=== PATIENT | female | born 1930 | race African-American/Black ===

== ENCOUNTER 2018-06-01 14:25 | Inpatient (IN) | payer MEDICARE, MEDICAID ==
[~2018-06-01] VITALS: Ht 165.1 cm; Wt 59.9 kg
[~2018-06-01 14:25] MED LIST: ACET-2708 PO; ASPI-1159 PO; DEXT15DR5 EACHEYE; LINA145C PO
[2018-06-01] MEDS ORDERED: SODIUM CHLORIDE 0.9% 500 ML IV ONE (14:45)
[2018-06-01] MEDS ORDERED: NALOXONE HCL 0.4 MG/ML 1ML VIAL IV PRN (14:45)
[2018-06-01 15:17] LABS: BASOPHILS % 0.8 % (0.0-2.0); EOSINOPHILS % 2.2 % (0.0-5.0); HEMATOCRIT. 35.4 % (36.0-48.0); LYMPHOCYTES % 38.6 % (20.0-50.0); MEAN CORPUSCULAR HEMOGLOBIN 33.3 pg (28.0-32.0); MEAN CORPUSCULAR VOLUME 98.5 fL (81.0-99.0); MEAN PLATELET VOLUME 9.3 fl (7.4-10.4); MONOCYTES % 8.5 % (2.0-8.0); NEUTROPHILS % 49.9 % (40.0-76.0); PLATELET 200 x1000/uL (130-400)
[2018-06-01 15:27] LABS: CHLORIDE 110 mEq/L (98-107); ETHANOL BLOOD < 10 mg/dL
[2018-06-01 16:07] LABS: CLARITY URINE CLEAR (CLEAR); COLOR URINE YELLOW (YELLOW); KETONES URINE NEGATIVE (NEGATIVE); LEUKOCYTE ESTERASE URINE NEGATIVE (NEGATIVE); NITRITE URINE NEGATIVE (NEGATIVE); OCCULT BLOOD URINE NEGATIVE (NEGATIVE); PH URINE 7.5 (4.5-8.0); PROTEIN URINE NEGATIVE (NEGATIVE); SPECIFIC GRAVITY URINE 1.004 (1.005-1.030); UROBILINOGEN URINE 0.2 E.U./dL (0.2-1.0)
[2018-06-01] MEDS ORDERED: ASPIRIN 300MG SUPP PR ONE (17:00)
[2018-06-01 17:07] LABS: *AMPHETAMINES SCREEN URINE NEGATIVE (NEGATIVE); *BARBITURATES SCREEN URINE NEGATIVE (NEGATIVE); *BENZODIAZEPINES SCREEN URINE NEGATIVE (NEGATIVE); *COCAINE SCREEN URINE NEGATIVE (NEGATIVE)
[2018-06-01 17:08] LABS: CANNABINOID URINE SCREEN NEGATIVE (NEGATIVE); METHADONE URINE SCREEN NEGATIVE (NEGATIVE); OPIATES URINE SCREEN NEGATIVE (NEGATIVE); PHENCYCLIDINE URINE SCREEN NEGATIVE (NEGATIVE)
[2018-06-01] MEDS ORDERED: ACETAMINOPHEN 325MG TABLET PO PRN (20:15)
[2018-06-01] MEDS ORDERED: IPRATROPIUM/ALBUTEROL 0.5-3(2.5)MG/3ML NEB INH PRN (20:15)
[2018-06-01] MEDS ORDERED: ONDANSETRON HCL 4MG/2ML INJ IV PRN (20:15)
[2018-06-01 23:20] VITALS: BP 147/81
[2018-06-01 23:45] VITALS: BP 147/81
[2018-06-02] MEDS ORDERED: AMLO5TAB4 PO (02:54)
[2018-06-02] MEDS ORDERED: FAMO20TA8 PO (02:54)
[2018-06-02] MEDS ORDERED: METO25TA6 PO (02:54)
[2018-06-02] MEDS ORDERED: CLOP75TA16 PO (02:54)
[2018-06-02] MEDS ORDERED: ATOR20TA65 PO (02:55)
[2018-06-02 04:00] VITALS: BP 136/66
[2018-06-02 08:00] VITALS: BP 133/65
[2018-06-02 08:42] LABS: BASOPHILS % 0.6 % (0.0-2.0); EOSINOPHILS % 0.3 % (0.0-5.0); HEMOGLOBIN. 11.3 g/dL (12.0-16.0); LYMPHOCYTES % 21.7 % (20.0-50.0); MEAN CORPUSCULAR HEMOGLOBIN 33.6 pg (28.0-32.0); MEAN CORPUSCULAR VOLUME 98.1 fL (81.0-99.0); MEAN PLATELET VOLUME 8.7 fl (7.4-10.4); MONOCYTES % 6.3 % (2.0-8.0); NEUTROPHILS % 71.1 % (40.0-76.0); PLATELET 188 x1000/uL (130-400); RED BLOOD CELL COUNT 3.37 mill/uL (4.2-5.4); RED CELL DISTRIBUTION WIDTH 12.9 % (11.6-14.6)
[2018-06-02] MEDS ORDERED: DOCUSATE SODIUM 250MG CAPSULE PO SCH (09:00)
[2018-06-02 09:24] LABS: CHLORIDE 114 mEq/L (98-107)
[2018-06-02 09:30] LABS: HDL CHOLESTEROL 64 mg/dL (40-59); LDL CHOLESTEROL 98 mg/dL (5-100)
[2018-06-02] MEDS ORDERED: ACETAMINOPHEN 650MG/20.3ML UDC PO NR (09:30)
[2018-06-02] MEDS: ASPIRIN 81MG EC TABLET PO SCH (09:41)
[2018-06-02] MEDS: ENOXAPARIN 40MG/0.4ML SYR SUBCUT SCH (09:41)
[2018-06-02] MEDS ORDERED: BACLOFEN 10MG TABLET PO SCH (09:45)
[2018-06-02] MEDS: DOCUSATE SODIUM SUGAR FREE 100MG/10ML UDC PO SCH (09:49)
[2018-06-02] MEDS: POLYVINYL ALCOHOL OPHTH DROPS 15ML BOTHEYE SCH ×2 (15:14→22:24)
[2018-06-02 16:00] VITALS: BP 152/83
[2018-06-02] MEDS: DEXT 5%/0.45% NACL 1000ML 1,000 ML IV SCH ×2 (16:56→22:24)
[2018-06-02 20:00] VITALS: BP 132/78
[2018-06-03] VITALS (7 sets, daily range): BP systolic 113–161; BP diastolic 60–76
[2018-06-03] MEDS: POLYVINYL ALCOHOL OPHTH DROPS 15ML BOTHEYE SCH ×4 (06:25→18:13)
[2018-06-03 07:50] LABS: BASOPHILS % 0.9 % (0.0-2.0); EOSINOPHILS % 1.6 % (0.0-5.0); HEMATOCRIT. 31.8 % (36.0-48.0); HEMOGLOBIN. 10.9 g/dL (12.0-16.0); LYMPHOCYTES % 29.3 % (20.0-50.0); MEAN CORPUSCULAR HEMOGLOBIN 33.6 pg (28.0-32.0); MEAN CORPUSCULAR VOLUME 97.9 fL (81.0-99.0); MEAN PLATELET VOLUME 8.7 fl (7.4-10.4); MONOCYTES % 11.4 % (2.0-8.0); NEUTROPHILS % 56.8 % (40.0-76.0); PLATELET 201 x1000/uL (130-400); RED BLOOD CELL COUNT 3.25 mill/uL (4.2-5.4); RED CELL DISTRIBUTION WIDTH 12.9 % (11.6-14.6)
[2018-06-03 08:49] LABS: CHLORIDE 111 mEq/L (98-107)
[2018-06-03] MEDS: ASPIRIN 81MG EC TABLET PO SCH (08:50)
[2018-06-03] MEDS: DOCUSATE SODIUM SUGAR FREE 100MG/10ML UDC PO SCH (08:51)
[2018-06-03] MEDS: ENOXAPARIN 40MG/0.4ML SYR SUBCUT SCH (08:51)
[2018-06-03] MEDS: DEXT 5%/0.45% NACL 1000ML 1,000 ML IV SCH (12:54)
[2018-06-03] MEDS ORDERED: AMLODIPINE 2.5MG TABLET PO SCH (13:45)
[2018-06-03] MEDS: CLOPIDOGREL 75MG TABLET PO SCH (14:21)
[2018-06-03] MEDS: ATORVASTATIN CALCIUM 10MG TABLET PO SCH (21:56)
[2018-06-04] VITALS: BP 107/56
[2018-06-04] MEDS: POLYVINYL ALCOHOL OPHTH DROPS 15ML BOTHEYE SCH ×4 (00:09→17:37)
[2018-06-04] MEDS: DEXT 5%/0.45% NACL 1000ML 1,000 ML IV SCH (03:56)
[2018-06-04 04:00] VITALS: BP 146/73
[2018-06-04 06:34] LABS: BASOPHILS % 0.6 % (0.0-2.0); EOSINOPHILS % 3.8 % (0.0-5.0); HEMATOCRIT. 30.4 % (36.0-48.0); HEMOGLOBIN. 10.2 g/dL (12.0-16.0); LYMPHOCYTES % 29.7 % (20.0-50.0); MEAN CORPUSCULAR HEMOGLOBIN 33.3 pg (28.0-32.0); MEAN CORPUSCULAR VOLUME 99.6 fL (81.0-99.0); MONOCYTES % 10.5 % (2.0-8.0); NEUTROPHILS % 55.4 % (40.0-76.0); PLATELET 167 x1000/uL (130-400); RED BLOOD CELL COUNT 3.05 mill/uL (4.2-5.4); RED CELL DISTRIBUTION WIDTH 12.7 % (11.6-14.6)
[2018-06-04 08:00] VITALS: BP 164/82
[2018-06-04 08:11] LABS: CHLORIDE 111 mEq/L (98-107)
[2018-06-04] MEDS: CLOPIDOGREL 75MG TABLET PO SCH (08:55)
[2018-06-04] MEDS: ASPIRIN 81MG EC TABLET PO SCH (08:55)
[2018-06-04] MEDS: AMLODIPINE 2.5MG TABLET PO SCH (08:56)
[2018-06-04] MEDS: DOCUSATE SODIUM SUGAR FREE 100MG/10ML UDC PO SCH (08:56)
[2018-06-04 12:00] VITALS: BP 140/87
[2018-06-04 16:00] VITALS: BP 141/64
[2018-06-04 20:00] VITALS: BP 92/56
[2018-06-04] MEDS: ATORVASTATIN CALCIUM 10MG TABLET PO SCH (21:57)
[2018-06-04] MEDS: BACLOFEN 10MG TABLET PO SCH (21:58)
[2018-06-05] VITALS: BP 117/56
[2018-06-05] MEDS: POLYVINYL ALCOHOL OPHTH DROPS 15ML BOTHEYE SCH ×5 (00:55→23:17)
[2018-06-05 04:00] VITALS: BP 117/55
[2018-06-05 06:48] LABS: BASOPHILS % 0.4 % (0.0-2.0); EOSINOPHILS % 2.6 % (0.0-5.0); HEMATOCRIT. 30.4 % (36.0-48.0); HEMOGLOBIN. 10.4 g/dL (12.0-16.0); LYMPHOCYTES % 32.8 % (20.0-50.0); MEAN CORPUSCULAR HEMOGLOBIN 33.5 pg (28.0-32.0); MEAN CORPUSCULAR VOLUME 98.1 fL (81.0-99.0); MONOCYTES % 8.7 % (2.0-8.0); NEUTROPHILS % 55.5 % (40.0-76.0); PLATELET 191 x1000/uL (130-400); RED CELL DISTRIBUTION WIDTH 12.9 % (11.6-14.6)
[2018-06-05 07:23] LABS: CHLORIDE 109 mEq/L (98-107)
[2018-06-05 08:14] VITALS: BP 129/62
[2018-06-05] MEDS: ASPIRIN 81MG EC TABLET PO SCH (08:42)
[2018-06-05] MEDS: DOCUSATE SODIUM SUGAR FREE 100MG/10ML UDC PO SCH (08:42)
[2018-06-05] MEDS: CLOPIDOGREL 75MG TABLET PO SCH (08:42)
[2018-06-05] MEDS: AMLODIPINE 2.5MG TABLET PO SCH (08:42)
[2018-06-05] MEDS: FUROSEMIDE 20MG/2ML VIAL IVP SCH (10:55)
[2018-06-05] MEDS: PANTOPRAZOLE SODIUM 40 MG/VIAL IV SCH (10:55)
[2018-06-05] MEDS: SODIUM CHLORIDE 0.9% 1,000 ML IV SCH (10:55)
[2018-06-05 11:08] LABS: PHOSPHORUS 1.8 mg/dL (2.5-4.9)
[2018-06-05 12:00] VITALS: BP 131/67
[2018-06-05 13:36] LABS: T4 FREE 1.49 ng/dL (0.76-1.46)
[2018-06-05 14:11] LABS: FOLIC ACID (FOLATE) SERUM 17.3 ng/mL (>5.38)
[2018-06-05 16:00] VITALS: BP 125/62
[2018-06-05] MEDS ORDERED: ACETAMINOPHEN 325MG SUPP PR PRN (18:30)
[2018-06-05 20:00] VITALS: BP 94/73
[2018-06-05] MEDS: BACLOFEN 10MG TABLET PO SCH (20:42)
[2018-06-05] MEDS: ATORVASTATIN CALCIUM 10MG TABLET PO SCH (20:42)
[2018-06-05] MEDS ORDERED: ACETAMINOPHEN 325MG SUPP PR SCH (21:00)
[2018-06-06] VITALS: BP 157/65
[2018-06-06] MEDS: SODIUM CHLORIDE 0.9% 1,000 ML IV SCH (03:53)
[2018-06-06 04:00] VITALS: BP 141/69
[2018-06-06] MEDS: POLYVINYL ALCOHOL OPHTH DROPS 15ML BOTHEYE SCH ×4 (06:47→23:49)
[2018-06-06 08:00] VITALS: BP 157/89
[2018-06-06 08:13] LABS: BASOPHILS % 0.8 % (0.0-2.0); EOSINOPHILS % 2.5 % (0.0-5.0); HEMOGLOBIN. 10.4 g/dL (12.0-16.0); LYMPHOCYTES % 27.7 % (20.0-50.0); MEAN CORPUSCULAR HEMOGLOBIN 32.6 pg (28.0-32.0); MEAN CORPUSCULAR VOLUME 97.9 fL (81.0-99.0); MEAN PLATELET VOLUME 8.9 fl (7.4-10.4); MONOCYTES % 8.4 % (2.0-8.0); NEUTROPHILS % 60.6 % (40.0-76.0); PLATELET 204 x1000/uL (130-400); RED BLOOD CELL COUNT 3.17 mill/uL (4.2-5.4); RED CELL DISTRIBUTION WIDTH 12.7 % (11.6-14.6)
[2018-06-06 08:18] LABS: CHLORIDE 114 mEq/L (98-107)
[2018-06-06] MEDS: ASPIRIN 81MG EC TABLET PO SCH (09:00)
[2018-06-06] MEDS: AMLODIPINE 2.5MG TABLET PO SCH (09:00)
[2018-06-06] MEDS: DOCUSATE SODIUM SUGAR FREE 100MG/10ML UDC PO SCH (09:00)
[2018-06-06] MEDS: CLOPIDOGREL 75MG TABLET PO SCH (09:00)
[2018-06-06] MEDS: FUROSEMIDE 20MG/2ML VIAL IVP SCH (10:43)
[2018-06-06] MEDS: PANTOPRAZOLE SODIUM 40 MG/VIAL IV SCH (10:43)
[2018-06-06] MEDS ORDERED: ACETAMINOPHEN 650MG SUPP PR PRN (10:45)
[2018-06-06 12:00] VITALS: BP 131/78
[2018-06-06] MEDS: ACETAMINOPHEN 650MG SUPP PR SCH ×2 (12:59→21:27)
[2018-06-06] MEDS: DEXT 5%/0.45% NACL 1000ML 1,000 ML IV SCH (13:00)
[2018-06-06 16:00] VITALS: BP 139/98
[2018-06-06 20:00] VITALS: BP 134/74
[2018-06-06] MEDS: BACLOFEN 10MG TABLET PO SCH (21:00)
[2018-06-06] MEDS: ATORVASTATIN CALCIUM 10MG TABLET PO SCH (21:00)
[2018-06-07] VITALS (7 sets, daily range): BP systolic 108–163; BP diastolic 52–87
[2018-06-07] MEDS: POLYVINYL ALCOHOL OPHTH DROPS 15ML BOTHEYE SCH ×3 (05:56→20:00)
[2018-06-07] MEDS: DEXT 5%/0.45% NACL 1000ML 1,000 ML IV SCH (05:56)
[2018-06-07 08:07] LABS: BASOPHILS % 0.8 % (0.0-2.0); EOSINOPHILS % 3.6 % (0.0-5.0); HEMATOCRIT. 32.2 % (36.0-48.0); HEMOGLOBIN. 10.8 g/dL (12.0-16.0); LYMPHOCYTES % 24.3 % (20.0-50.0); MEAN CORPUSCULAR HEMOGLOBIN 32.7 pg (28.0-32.0); MEAN CORPUSCULAR VOLUME 97.9 fL (81.0-99.0); MEAN PLATELET VOLUME 8.8 fl (7.4-10.4); MONOCYTES % 10.4 % (2.0-8.0); NEUTROPHILS % 60.9 % (40.0-76.0); PLATELET 209 x1000/uL (130-400); RED BLOOD CELL COUNT 3.29 mill/uL (4.2-5.4)
[2018-06-07] MEDS: PANTOPRAZOLE SODIUM 40 MG/VIAL IV SCH (09:47)
[2018-06-07] MEDS: FUROSEMIDE 20MG/2ML VIAL IVP SCH (10:05)
[2018-06-07] MEDS: ASPIRIN 81MG EC TABLET PO SCH (10:10)
[2018-06-07] MEDS: CLOPIDOGREL 75MG TABLET PO SCH (10:10)
[2018-06-07] MEDS: AMLODIPINE 2.5MG TABLET PO SCH (10:10)
[2018-06-07 10:12] LABS: CHLORIDE 112 mEq/L (98-107)
[2018-06-07 10:21] LABS: PHOSPHORUS 2.5 mg/dL (2.5-4.9)
[2018-06-07] MEDS: ACETAMINOPHEN 650MG SUPP PR SCH ×2 (10:23→21:26)
[2018-06-07] MEDS: DOCUSATE SODIUM SUGAR FREE 100MG/10ML UDC PO SCH (10:27)
[2018-06-07] MEDS: POTASSIUM PHOS M BASIC D BASIC IV SCH ×2 (14:12→19:04)
[2018-06-07] MEDS: DEXTROSE 5% IV SCH ×2 (14:12→19:04)
[2018-06-07] MEDS: WATER IV SCH ×2 (14:12→19:04)
[2018-06-07] MEDS: BACLOFEN 10MG TABLET PO SCH (21:26)
[2018-06-07] MEDS: ATORVASTATIN CALCIUM 10MG TABLET PO SCH (21:26)
[2018-06-08] VITALS: BP 131/71
[2018-06-08] MEDS: DEXTROSE 5% IV SCH (00:57)
[2018-06-08] MEDS: POTASSIUM PHOS M BASIC D BASIC IV SCH (00:57)
[2018-06-08] MEDS: WATER IV SCH (00:57)
[2018-06-08] MEDS: POLYVINYL ALCOHOL OPHTH DROPS 15ML BOTHEYE SCH ×4 (00:57→18:00)
[2018-06-08 04:00] VITALS: BP 116/61
[2018-06-08 06:21] LABS: BASOPHILS % 0.5 % (0.0-2.0); EOSINOPHILS % 3.9 % (0.0-5.0); HEMOGLOBIN. 10.4 g/dL (12.0-16.0); LYMPHOCYTES % 28.7 % (20.0-50.0); MEAN CORPUSCULAR HEMOGLOBIN 32.8 pg (28.0-32.0); MEAN CORPUSCULAR VOLUME 97.8 fL (81.0-99.0); MEAN PLATELET VOLUME 9.3 fl (7.4-10.4); MONOCYTES % 9.1 % (2.0-8.0); NEUTROPHILS % 57.8 % (40.0-76.0); PLATELET 193 x1000/uL (130-400); RED BLOOD CELL COUNT 3.17 mill/uL (4.2-5.4); RED CELL DISTRIBUTION WIDTH 12.6 % (11.6-14.6)
[2018-06-08 06:22] LABS: PHOSPHORUS 4.8 mg/dL (2.5-4.9)
[2018-06-08] MEDS ORDERED: FOLIC ACID 1MG TABLET PO SCH (09:00)
[2018-06-08] MEDS: FUROSEMIDE 20MG/2ML VIAL IVP SCH (10:42)
[2018-06-08] MEDS: DOCUSATE SODIUM SUGAR FREE 100MG/10ML UDC PO SCH (10:42)
[2018-06-08] MEDS: ACETAMINOPHEN 650MG SUPP PR SCH (10:43)
[2018-06-08] MEDS: AMLODIPINE 2.5MG TABLET PO SCH (10:44)
[2018-06-08] MEDS: PANTOPRAZOLE SODIUM 40 MG/VIAL IV SCH (10:44)
[2018-06-08] MEDS: DEXT 5%/0.45% NACL 1000ML 1,000 ML IV SCH ×2 (10:53→18:30)
[2018-06-08 16:00] VITALS: BP 127/78
[2018-06-08] MEDS ORDERED: DIPYRIDAMOLE 25 MG TABLET PO SCH (18:00)
[2018-06-08] MEDS ORDERED: ASPIRIN 81MG TABLET PO SCH (18:00)
[2018-06-08 18:14] LABS: PARTIAL THROMBOPLASTIN TIME 25.1 sec (23.4-31.0); PROTHROMBIN TIME 9.9 sec (9.1-11.1)
[2018-06-08 20:01] VITALS: BP 118/58
[2018-06-09] MEDS ORDERED: FAMOTIDINE 20MG/2ML VIAL IV SCH (09:00)
[2018-06-10 07:20] LABS: A/G RATIO 0.9 (0.7-1.7); ALBUMIN 3.2 g/dL (2.9-4.4); ALPHA-1-GLOBULIN 0.3 g/dL (0.0-0.4); ALPHA-2-GLOBULIN 0.8 g/dL (0.4-1.0); BETA GLOBULIN 1.5 g/dL (0.7-1.3); GAMMA GLOBULINS 0.8 g/dL (0.4-1.8); GLOBULIN TOTAL 3.4 g/dL (2.2-3.9); M-SPIKE 0.7 g/dL (Not Observed); TOTAL PROTEIN SERUM 6.6 g/dL (6.0-8.5)
== END 2018-06-08 22:31 | DRG 65 ==
LOC: ER 14:25 → EDBEDREQTM 17:09 → EDBEDREQ 17:09 → EDBEDREQTM 18:20 → EDBEDREQ 18:21 → EDBEDREQTM 18:30 → EDBEDREQ 18:30 → 5WST 18:30 → ENRESERV 19:30
PROVIDERS: ADMIT Internal Medicine Geriatric Medicine; ATTEND Internal Medicine Geriatric Medicine
DX: I63.9 Cerebral infarction, unspecified (principal); E46 Unspecified protein-calorie malnutrition; E87.0 Hyperosmolality and hypernatremia; G81.91 Hemiplegia, unspecified affecting right dominant side; E87.5 Hyperkalemia; Z86.73 Personal history of transient ischemic attack (TIA), and cerebral infarction without residual deficits; R47.02 Dysphasia; M21.331 Wrist drop, right wrist; I67.1 Cerebral aneurysm, nonruptured; D64.9 Anemia, unspecified; F01.50 Vascular dementia, unspecified severity, without behavioral disturbance, psychotic disturbance, mood disturbance, and anxiety; R25.2 Cramp and spasm; R73.9 Hyperglycemia, unspecified; E86.0 Dehydration; E83.52 Hypercalcemia; K59.09 Other constipation; E78.5 Hyperlipidemia, unspecified; M13.0 Polyarthritis, unspecified; E78.00 Pure hypercholesterolemia, unspecified; I10 Essential (primary) hypertension; I65.23 Occlusion and stenosis of bilateral carotid arteries; M48.02 Spinal stenosis, cervical region; R13.10 Dysphagia, unspecified; Z91.041 Radiographic dye allergy status; Z99.3 Dependence on wheelchair; Z68.22 Body mass index [BMI] 22.0-22.9, adult; Z88.8 Allergy status to other drugs, medicaments and biological substances; Z79.82 Long term (current) use of aspirin
CPT/HCPCS: 36415; 70544; 70551; 71045; 72141; 73030; 73060; 80048; 80061; 80305; 80307; 80329; 82140; 82330; 82607; 82746; 82962; 83036; 83735; 83880; 83970; 84100; 84134; 84155; 84165; 84439; 84443; 84481; 84484; 92610; 93005; 93306; 93880; 93970; 96361; 96374; 97162; 97530; 99285; C1893; C9113; G0482; J1650; J1940; J2310; J3490; J7030; J7070

== ENCOUNTER 2018-06-25 09:58 | Day surgery (SDC) | payer MEDICARE, MEDICAID ==
[~2018-06-25] VITALS: Ht 157.5 cm; Wt 53.1 kg
[~2018-06-25 09:58] MED LIST changes: +AMLO5TAB4 PO; +ATOR20TA65 PO; +CLOP75TA16 PO; +FAMO20TA8 PO; +METO25TA6 PO
[2018-06-25] MEDS ORDERED: LACTATED RINGERS 1,000 ML IV SCH (10:15)
[2018-06-25] MEDS ORDERED: MULT9LIQ7 PO (11:20)
[2018-06-25] MEDS ORDERED: FOLI-43 PO (11:20)
[2018-06-25] MEDS ORDERED: LOV40 SQ (11:20)
[2018-06-25] MEDS ORDERED: PANT40TA4 PO (11:20)
[2018-06-25] MEDS ORDERED: PROPOFOL 200MG/20ML VIAL IV ONE (11:26)
[2018-06-25] MEDS ORDERED: LIDOCAINE HCL/PF 1% 10 MG/ML 5ML VIAL ONE (11:35)
[2018-06-25] MEDS ORDERED: AMIN30LI2 PO (12:18)
[2018-06-25] MEDS ORDERED: ACET120S38 RC (12:18)
[2018-06-25] MEDS ORDERED: DOCU50LI13 PO (12:18)
== END 2018-06-25 13:00 | disposition home or self-care (01) ==
LOC: OR 09:58
PROVIDERS: ATTEND Internal Medicine Gastroenterology
DX: E46 Unspecified protein-calorie malnutrition (principal); R19.7 Diarrhea, unspecified; K44.9 Diaphragmatic hernia without obstruction or gangrene; I10 Essential (primary) hypertension; E78.5 Hyperlipidemia, unspecified; D64.9 Anemia, unspecified; G81.91 Hemiplegia, unspecified affecting right dominant side; Z79.899 Other long term (current) drug therapy; Z98.890 Other specified postprocedural states; Z88.8 Allergy status to other drugs, medicaments and biological substances; Z86.73 Personal history of transient ischemic attack (TIA), and cerebral infarction without residual deficits
CPT/HCPCS: 43246; J3490; C1893; J2704

== ENCOUNTER 2019-08-16 12:36 | Inpatient (IN) | payer MEDICAID, MEDICARE ==
[~2019-08-16] VITALS: Ht 154.9 cm; Wt 60.3 kg
[~2019-08-16 12:36] MED LIST changes: +ACET120S38 RC; +AMIN30LI2 PO; -ASPI-1159 PO; -CLOP75TA16 PO; +CLOP75TA4 PO; +DOCU50LI13 PO; -FAMO20TA8 PO; +FOLI-43 PO; -LINA145C PO; +LOV40 SQ; -METO25TA6 PO; +MULT9LIQ7 PO; +PANT40TA4 PO
[2019-08-16 14:42] LABS: BASOPHILS % 0.4 % (0.0-2.0); EOSINOPHILS % 0.2 % (0.0-5.0); HEMATOCRIT. 32.5 % (36.0-48.0); MEAN CORPUSCULAR HEMOGLOBIN 33.7 pg (28.0-32.0); MEAN CORPUSCULAR VOLUME 99.8 fL (81.0-99.0); MEAN PLATELET VOLUME 8.6 fl (7.4-10.4); MONOCYTES % 8.8 % (2.0-8.0); NEUTROPHILS % 78.6 % (40.0-76.0); PLATELET 227 x1000/uL (130-400); RED BLOOD CELL COUNT 3.26 mill/uL (4.2-5.4); RED CELL DISTRIBUTION WIDTH 13.3 % (11.6-14.6)
[2019-08-16 14:49] LABS: INR 1.1; PROTHROMBIN TIME 10.8 sec (9.6-11.0)
[2019-08-16 14:54] LABS: CHLORIDE 114 mEq/L (98-107)
[2019-08-16 14:58] LABS: ETHANOL BLOOD < 10 mg/dL
[2019-08-16 15:01] LABS: LDL CHOLESTEROL 83 mg/dL (5-100)
[2019-08-16] MEDS ORDERED: MAGNESIUM/ALUMINUM HYDROXIDE/SIMETHICONE 30ML UDC PO PRN (15:30)
[2019-08-16] MEDS ORDERED: IPRATROPIUM/ALBUTEROL 0.5-3(2.5)MG/3ML NEB HHN PRN (15:30)
[2019-08-16] MEDS ORDERED: ONDANSETRON HCL 4MG/2ML INJ IV PRN (15:30)
[2019-08-16] MEDS ORDERED: ACETAMINOPHEN 650MG/20.3ML UDC GT PRN (15:30)
[2019-08-16] MEDS: SODIUM CHL 0.45% + KCL 20MEQ/L 1,000 ML IV SCH (18:05)
[2019-08-16 19:01] LABS: CLARITY URINE CLEAR (CLEAR); COLOR URINE YELLOW (YELLOW); KETONES URINE NEGATIVE (NEGATIVE); LEUKOCYTE ESTERASE URINE NEGATIVE (NEGATIVE); NITRITE URINE POSITIVE (NEGATIVE); OCCULT BLOOD URINE NEGATIVE (NEGATIVE); PROTEIN URINE 1+ (NEGATIVE); SPECIFIC GRAVITY URINE 1.013 (1.005-1.030)
[2019-08-16 19:24] LABS: *AMPHETAMINES SCREEN URINE NEGATIVE (NEGATIVE); *BARBITURATES SCREEN URINE NEGATIVE (NEGATIVE); *BENZODIAZEPINES SCREEN URINE NEGATIVE (NEGATIVE); CANNABINOID URINE SCREEN NEGATIVE (NEGATIVE); PHENCYCLIDINE URINE SCREEN NEGATIVE (NEGATIVE)
[2019-08-16 19:25] LABS: *COCAINE SCREEN URINE NEGATIVE (NEGATIVE); METHADONE URINE SCREEN NEGATIVE (NEGATIVE); OPIATES URINE SCREEN NEGATIVE (NEGATIVE)
[2019-08-16] MEDS ORDERED: CEFTRIAXONE 1 G PREMIX 50 ML IV SCH (20:30)
[2019-08-17] VITALS (8 sets, daily range): BP systolic 121–191; BP diastolic 53–82
[2019-08-17] MEDS: POLYVINYL ALCOHOL OPHTH DROPS 15ML BOTHEYE SCH ×3 (06:30→21:42)
[2019-08-17] MEDS: SODIUM CHL 0.45% + KCL 20MEQ/L 1,000 ML IV SCH ×2 (06:30→21:09)
[2019-08-17 08:32] LABS: BASOPHILS % 0.6 % (0.0-2.0); EOSINOPHILS % 0.3 % (0.0-5.0); HEMATOCRIT. 30.9 % (36.0-48.0); HEMOGLOBIN. 10.4 g/dL (12.0-16.0); LYMPHOCYTES % 29.3 % (20.0-50.0); MEAN CORPUSCULAR HEMOGLOBIN 33.7 pg (28.0-32.0); MEAN CORPUSCULAR VOLUME 100.2 fL (81.0-99.0); MEAN PLATELET VOLUME 8.4 fl (7.4-10.4); MONOCYTES % 13.6 % (2.0-8.0); NEUTROPHILS % 56.2 % (40.0-76.0); PLATELET 206 x1000/uL (130-400); RED BLOOD CELL COUNT 3.08 mill/uL (4.2-5.4); RED CELL DISTRIBUTION WIDTH 13.2 % (11.6-14.6)
[2019-08-17] MEDS ORDERED: ACETAMINOPHEN 120MG SUPP RC SCH (09:00)
[2019-08-17] MEDS ORDERED: DOCUSATE SODIUM 250MG CAPSULE PO SCH (09:00)
[2019-08-17 09:14] LABS: CHLORIDE 116 mEq/L (98-107)
[2019-08-17 09:27] LABS: T4 FREE 1.15 ng/dL (0.76-1.46)
[2019-08-17] MEDS: PANTOPRAZOLE 40MG DR TABLET PO SCH (09:41)
[2019-08-17] MEDS: MULTIVITAMINS,THER W-MINERALS TABLET GT SCH (09:41)
[2019-08-17] MEDS: FOLIC ACID 1MG TABLET PO SCH (09:41)
[2019-08-17] MEDS: DOCUSATE SODIUM SUGAR FREE 100MG/10ML UDC PO SCH (09:41)
[2019-08-17] MEDS: AMLODIPINE 2.5MG TABLET GT SCH (09:42)
[2019-08-17] MEDS: ACETAMINOPHEN 500MG TABLET PO SCH ×2 (09:42→17:18)
[2019-08-17] MEDS: APIXABAN 2.5 MG TABLET PO SCH ×2 (12:25→17:18)
[2019-08-17] MEDS: IPRATROPIUM/ALBUTEROL 0.5-3(2.5)MG/3ML NEB HHN SCH ×2 (17:12→21:07)
[2019-08-17] MEDS: CEFTRIAXONE 1 G PREMIX 50 ML IV SCH (20:06)
[2019-08-17] MEDS ORDERED: CEFTRIAXONE 1 G PREMIX 50 ML IV SCH (21:00)
[2019-08-17] MEDS ORDERED: ATORVASTATIN CALCIUM 20MG TABLET PO SCH (21:00)
[2019-08-17] MEDS: ATORVASTATIN CALCIUM 20MG TABLET PO SCH (21:10)
[2019-08-18] VITALS (12 sets, daily range): BP systolic 118–169; BP diastolic 48–121
[2019-08-18] MEDS: IPRATROPIUM/ALBUTEROL 0.5-3(2.5)MG/3ML NEB HHN SCH ×6 (00:47→20:27)
[2019-08-18] MEDS: POLYVINYL ALCOHOL OPHTH DROPS 15ML BOTHEYE SCH ×4 (04:41→17:07)
[2019-08-18] MEDS: CLONIDINE 0.1MG TABLET PO PRN (06:50)
[2019-08-18 06:59] LABS: BASOPHILS % 0.3 % (0.0-2.0); EOSINOPHILS % 0.1 % (0.0-5.0); LYMPHOCYTES % 21.7 % (20.0-50.0); MEAN CORPUSCULAR HEMOGLOBIN 33.4 pg (28.0-32.0); MEAN CORPUSCULAR VOLUME 99.9 fL (81.0-99.0); MEAN PLATELET VOLUME 9.1 fl (7.4-10.4); MONOCYTES % 8.8 % (2.0-8.0); NEUTROPHILS % 69.1 % (40.0-76.0); PLATELET 214 x1000/uL (130-400); RED BLOOD CELL COUNT 3.31 mill/uL (4.2-5.4)
[2019-08-18 07:30] LABS: CHLORIDE 112 mEq/L (98-107)
[2019-08-18] MEDS: AMLODIPINE 2.5MG TABLET GT SCH (11:49)
[2019-08-18] MEDS: MULTIVITAMINS,THER W-MINERALS TABLET GT SCH (11:53)
[2019-08-18] MEDS: DOCUSATE SODIUM SUGAR FREE 100MG/10ML UDC PO SCH (11:54)
[2019-08-18] MEDS: PANTOPRAZOLE 40MG DR TABLET PO SCH (11:54)
[2019-08-18] MEDS: FOLIC ACID 1MG TABLET PO SCH (11:54)
[2019-08-18] MEDS: APIXABAN 2.5 MG TABLET PO SCH ×2 (11:54→16:53)
[2019-08-18] MEDS: SODIUM CHL 0.45% + KCL 20MEQ/L 1,000 ML IV SCH ×3 (11:55→15:36)
[2019-08-18] MEDS: ACETAMINOPHEN 500MG TABLET PO SCH ×2 (11:55→16:53)
[2019-08-18] MEDS: CEFTRIAXONE 1 G PREMIX 50 ML IV SCH (17:07)
[2019-08-18] MEDS: ATORVASTATIN CALCIUM 20MG TABLET PO SCH (21:27)
[2019-08-19] VITALS (13 sets, daily range): BP systolic 129–164; BP diastolic 49–98
[2019-08-19] MEDS: IPRATROPIUM/ALBUTEROL 0.5-3(2.5)MG/3ML NEB HHN SCH ×6 (00:25→21:24)
[2019-08-19 06:50] LABS: CHLORIDE 114 mEq/L (98-107)
[2019-08-19] MEDS: POLYVINYL ALCOHOL OPHTH DROPS 15ML BOTHEYE SCH ×4 (06:54→18:37)
[2019-08-19 07:01] LABS: BASOPHILS % 0.5 % (0.0-2.0); EOSINOPHILS % 0.6 % (0.0-5.0); HEMATOCRIT. 31.8 % (36.0-48.0); HEMOGLOBIN. 10.5 g/dL (12.0-16.0); LYMPHOCYTES % 28.3 % (20.0-50.0); MEAN CORPUSCULAR HEMOGLOBIN 33.6 pg (28.0-32.0); MEAN PLATELET VOLUME 8.5 fl (7.4-10.4); MONOCYTES % 10.6 % (2.0-8.0); PLATELET 199 x1000/uL (130-400); RED BLOOD CELL COUNT 3.11 mill/uL (4.2-5.4); RED CELL DISTRIBUTION WIDTH 13.5 % (11.6-14.6)
[2019-08-19] MEDS: DOCUSATE SODIUM SUGAR FREE 100MG/10ML UDC PO SCH (08:55)
[2019-08-19] MEDS: AMLODIPINE 2.5MG TABLET GT SCH (08:56)
[2019-08-19] MEDS: ACETAMINOPHEN 500MG TABLET PO SCH ×2 (08:56→09:56)
[2019-08-19] MEDS: PANTOPRAZOLE 40MG DR TABLET PO SCH (08:56)
[2019-08-19] MEDS: FOLIC ACID 1MG TABLET PO SCH (08:56)
[2019-08-19] MEDS: MULTIVITAMINS,THER W-MINERALS TABLET GT SCH (08:56)
[2019-08-19] MEDS: APIXABAN 2.5 MG TABLET PO SCH ×2 (08:56→18:37)
[2019-08-19] MEDS: SODIUM CHL 0.45% + KCL 20MEQ/L 1,000 ML IV SCH (12:00)
[2019-08-19] MEDS ORDERED: LEVO250T58 MT (12:52)
[2019-08-19] MEDS: CEFTRIAXONE 1 G PREMIX 50 ML IV SCH (18:37)
[2019-08-19] MEDS: ATORVASTATIN CALCIUM 20MG TABLET PO SCH (21:14)
[2019-08-19] MEDS: CLONIDINE 0.1MG TABLET PO PRN (23:23)
[2019-08-20] MEDS ORDERED: FAMOTIDINE 20MG TABLET PO SCH (09:00)
== END 2019-08-19 23:56 | DRG 683 ==
LOC: ER 12:36 → 5EST 15:13 → EDBEDREQ 15:40 → EDBEDREQTM 15:40 → ENRESERV 08-17 00:28
PROVIDERS: ADMIT Internal Medicine Geriatric Medicine; ATTEND Internal Medicine Geriatric Medicine
DX: N17.9 Acute kidney failure, unspecified (principal); N39.0 Urinary tract infection, site not specified; E44.1 Mild protein-calorie malnutrition; I69.351 Hemiplegia and hemiparesis following cerebral infarction affecting right dominant side; J90 Pleural effusion, not elsewhere classified; J20.9 Acute bronchitis, unspecified; E86.0 Dehydration; D63.8 Anemia in other chronic diseases classified elsewhere; G30.9 Alzheimer's disease, unspecified; R62.7 Adult failure to thrive; B96.89 Other specified bacterial agents as the cause of diseases classified elsewhere; E78.5 Hyperlipidemia, unspecified; F02.80 Dementia in other diseases classified elsewhere, unspecified severity, without behavioral disturbance, psychotic disturbance, mood disturbance, and anxiety; K59.09 Other constipation; M19.90 Unspecified osteoarthritis, unspecified site; I11.9 Hypertensive heart disease without heart failure; I48.0 Paroxysmal atrial fibrillation; I73.9 Peripheral vascular disease, unspecified; Z74.01 Bed confinement status; Z79.01 Long term (current) use of anticoagulants; Z79.02 Long term (current) use of antithrombotics/antiplatelets; Z79.899 Other long term (current) drug therapy; Z93.1 Gastrostomy status; Z68.25 Body mass index [BMI] 25.0-25.9, adult
CPT/HCPCS: 36415; 71045; 80048; 80053; 80061; 80305; 80320; 81003; 82962; 83721; 84439; 84443; 84484; 85025; 87077; 87186; 92610; 93005; 93306; 93880; 93970; 94640; 96365; 96366; 99291; J0696; J3480; J7620; G0480

== ENCOUNTER 2019-11-10 12:57 | Inpatient (IN) | payer MEDICARE, MEDICAID ==
[~2019-11-10] VITALS: Ht 162.6 cm; Wt 49.7 kg
[~2019-11-10 12:57] MED LIST changes: -ACET120S38 RC; +LEVO250T58 MT; -LOV40 SQ
[2019-11-10 15:36] LABS: BASOPHILS % 0.4 % (0.0-2.0); HEMATOCRIT. 35.9 % (36.0-48.0); LYMPHOCYTES % 36.9 % (20.0-50.0); MEAN CORPUSCULAR HEMOGLOBIN 33.3 pg (28.0-32.0); MEAN CORPUSCULAR VOLUME 99.6 fL (81.0-99.0); MEAN PLATELET VOLUME 8.9 fl (7.4-10.4); MONOCYTES % 13.3 % (2.0-8.0); NEUTROPHILS % 49.4 % (40.0-76.0); PLATELET 192 x1000/uL (130-400); RED CELL DISTRIBUTION WIDTH 14.5 % (11.6-14.6)
[2019-11-10 15:40] LABS: PROTHROMBIN TIME 10.9 sec (9.6-11.0)
[2019-11-10 15:43] LABS: CLARITY URINE CLEAR (CLEAR); COLOR URINE YELLOW (YELLOW); KETONES URINE NEGATIVE (NEGATIVE); LEUKOCYTE ESTERASE URINE NEGATIVE (NEGATIVE); NITRITE URINE NEGATIVE (NEGATIVE); OCCULT BLOOD URINE NEGATIVE (NEGATIVE); PROTEIN URINE 2+ (NEGATIVE); SPECIFIC GRAVITY URINE 1.014 (1.005-1.030)
[2019-11-10 15:55] LABS: CHLORIDE 116 mEq/L (98-107)
[2019-11-11] MEDS ORDERED: AZITHROMYCIN 500 MG TABLET PO NR (01:00)
[2019-11-11 02:17] VITALS: BP 118/80
[2019-11-11 04:00] VITALS: BP 115/91
[2019-11-11] MEDS ORDERED: ACETAMINOPHEN 325MG TABLET GT PRN (04:30)
[2019-11-11] MEDS ORDERED: CEFTRIAXONE 1 G PREMIX 50 ML IV SCH (08:00)
[2019-11-11 08:02] VITALS: BP 177/84
[2019-11-11] MEDS ORDERED: AZITHROMYCIN 500 MG in DEXT 5% WATER 250 ML IV NR (09:00)
[2019-11-11] MEDS: ACETAMINOPHEN 650MG/20.3ML UDC GT SCH ×2 (09:41→22:03)
[2019-11-11] MEDS: APIXABAN 2.5 MG TABLET GT SCH ×2 (09:41→22:02)
[2019-11-11] MEDS: DOCUSATE SODIUM 250MG CAPSULE PO SCH (09:41)
[2019-11-11] MEDS ORDERED: ASCORBIC ACID 500 MG TABLET GT SCH (10:00)
[2019-11-11] MEDS ORDERED: IPRA4AER INH (10:07)
[2019-11-11 11:08] LABS: BG BASE EXCESS 1.8 mmol/L (-2.0-2.0); BG CARBOXYHEMOGLOBIN 0.3 % (0.5-1.5); BG DEOXYHEMOGLOBIN 4.7 % (0.0-5.0); BG FRACTION INSPIRED OXYGEN 21; BG HCO3 ACT 25.8 mmol/L (22.0-26.0); BG METHEMOGLOBIN 0.1 % (0.0-1.5); BG OXYGEN SATURATION 95.3 % (92.0-98.5); BG OXYHEMOGLOBIN 94.9 % (94.0-97.0); BG PH 7.449 (7.350-7.450); BG PO2 76.3 mmHg (75.0-100.0); BG SAMPLE SITE RIGHT RADIAL; BG TOTAL HEMOGLOBIN 12.7 g/dL (12.0-18.0); BG VENT MODE ROOM AIR
[2019-11-11] MEDS: HYDROXYCHLOROQUINE SULFATE 200MG TABLET PO SCH ×2 (11:37→22:02)
[2019-11-11] MEDS: CHOLECALCIFEROL (D3) 1000 UNIT TABLET GT SCH (11:37)
[2019-11-11] MEDS: ASCORBIC ACID 500 MG TABLET PO SCH ×2 (11:38→17:50)
[2019-11-11] MEDS: THIAMINE HCL 100MG TABLET PO SCH ×2 (11:38→17:50)
[2019-11-11] MEDS: ZINC SULFATE 220 MG ( 50 ) CAPSULE PO SCH (11:38)
[2019-11-11] MEDS: FOLIC ACID 1MG TABLET PO SCH (11:38)
[2019-11-11] MEDS: AMLODIPINE 5MG TABLET PO SCH (11:39)
[2019-11-11] MEDS: ACETAMINOPHEN 500MG TABLET PO SCH ×2 (11:43→17:51)
[2019-11-11] MEDS: DEXT 5%/0.45% NACL KCL 10MEQ/L 1,000 ML IV SCH (11:43)
[2019-11-11 12:11] VITALS: BP 160/90
[2019-11-11 16:10] VITALS: BP 113/50
[2019-11-11 20:00] VITALS: BP 109/86
[2019-11-11] MEDS ORDERED: ATORVASTATIN CALCIUM 10MG TABLET GT SCH (21:00)
[2019-11-11] MEDS: ATORVASTATIN CALCIUM 20MG TABLET PO SCH (22:02)
[2019-11-12] VITALS: BP 110/88
[2019-11-12] MEDS: CEFTRIAXONE 1 G PREMIX 50 ML IV SCH ×2 (01:50→01:51)
[2019-11-12] MEDS: DEXT 5%/0.45% NACL KCL 10MEQ/L 1,000 ML IV SCH ×2 (01:51→14:34)
[2019-11-12 04:00] VITALS: BP 131/61
[2019-11-12 08:30] VITALS: BP 138/63
[2019-11-12] MEDS: DOCUSATE SODIUM SUGAR FREE 100MG/10ML UDC PO SCH (09:00)
[2019-11-12] MEDS: ASCORBIC ACID 500 MG TABLET PO SCH ×2 (09:00→17:00)
[2019-11-12] MEDS: AZITHROMYCIN 250 MG TABLET GT SCH (09:00)
[2019-11-12] MEDS: DOCUSATE SODIUM 250MG CAPSULE PO SCH (09:00)
[2019-11-12] MEDS: THIAMINE HCL 100MG TABLET PO SCH ×2 (09:00→17:00)
[2019-11-12] MEDS: CHOLECALCIFEROL (D3) 1000 UNIT TABLET GT SCH (09:00)
[2019-11-12] MEDS: ACETAMINOPHEN 650MG/20.3ML UDC GT SCH ×2 (09:00→20:59)
[2019-11-12] MEDS: ACETAMINOPHEN 500MG TABLET PO SCH ×2 (09:37→17:00)
[2019-11-12] MEDS: APIXABAN 2.5 MG TABLET GT SCH ×2 (09:37→20:43)
[2019-11-12] MEDS: FOLIC ACID 1MG TABLET PO SCH (09:38)
[2019-11-12] MEDS: ZINC SULFATE 220 MG ( 50 ) CAPSULE PO SCH (09:38)
[2019-11-12] MEDS: AMLODIPINE 5MG TABLET PO SCH (09:38)
[2019-11-12 09:57] LABS: BASOPHILS % 0.2 % (0.0-2.0); EOSINOPHILS % 0.4 % (0.0-5.0); HEMATOCRIT. 35.3 % (36.0-48.0); HEMOGLOBIN. 11.7 g/dL (12.0-16.0); MEAN CORPUSCULAR HEMOGLOBIN 33.2 pg (28.0-32.0); MEAN CORPUSCULAR VOLUME 99.8 fL (81.0-99.0); MONOCYTES % 5.8 % (2.0-8.0); NEUTROPHILS % 81.6 % (40.0-76.0); RED BLOOD CELL COUNT 3.54 mill/uL (4.2-5.4); RED CELL DISTRIBUTION WIDTH 14.5 % (11.6-14.6)
[2019-11-12 10:13] LABS: CHLORIDE 114 mEq/L (98-107)
[2019-11-12 10:19] LABS: PHOSPHORUS 1.6 mg/dL (2.5-4.9)
[2019-11-12] MEDS: POTASSIUM-SODIUM PHOSPHATE POWDER PACKET GT SCH ×2 (11:09→17:00)
[2019-11-12] MEDS: HYDROXYCHLOROQUINE SULFATE 200MG TABLET PO SCH ×2 (11:09→23:29)
[2019-11-12 12:00] VITALS: BP 110/88
[2019-11-12] MEDS ORDERED: NON FORMULARY PATIENT HOME MED XX SCH (12:00)
[2019-11-12] MEDS ORDERED: IPRATROPIUM/ALBUTEROL 0.5-3(2.5)MG/3ML NEB HHN SCH (12:00)
[2019-11-12] MEDS ORDERED: SODIUM PHOS,M-BASIC-D-BASIC 20 MM in DEXT 5% WATER 243.3333 ML IV SCH (13:00)
[2019-11-12 16:00] VITALS: BP 121/72
[2019-11-12 20:00] VITALS: BP 150/79
[2019-11-12] MEDS: ATORVASTATIN CALCIUM 20MG TABLET PO SCH (20:43)
[2019-11-13] VITALS: BP 103/48
[2019-11-13] MEDS: CEFTRIAXONE 1 G PREMIX 50 ML IV SCH ×2 (01:14→23:39)
[2019-11-13 04:00] VITALS: BP 144/63
[2019-11-13] MEDS: DEXT 5%/0.45% NACL KCL 10MEQ/L 1,000 ML IV SCH ×2 (04:09→17:16)
[2019-11-13] MEDS: ACETAMINOPHEN 650MG/20.3ML UDC GT SCH ×2 (09:00→21:09)
[2019-11-13] MEDS: DOCUSATE SODIUM SUGAR FREE 100MG/10ML UDC PO SCH (09:00)
[2019-11-13] MEDS: ZINC SULFATE 220 MG ( 50 ) CAPSULE PO SCH (09:43)
[2019-11-13] MEDS: APIXABAN 2.5 MG TABLET GT SCH ×2 (09:43→21:09)
[2019-11-13] MEDS: POTASSIUM-SODIUM PHOSPHATE POWDER PACKET GT SCH ×2 (09:44→16:04)
[2019-11-13] MEDS: DOCUSATE SODIUM 250MG CAPSULE PO SCH (09:44)
[2019-11-13] MEDS: AZITHROMYCIN 250 MG TABLET GT SCH (09:44)
[2019-11-13] MEDS: CHOLECALCIFEROL (D3) 1000 UNIT TABLET GT SCH (09:44)
[2019-11-13] MEDS: ACETAMINOPHEN 500MG TABLET PO SCH ×2 (09:44→16:05)
[2019-11-13] MEDS: FOLIC ACID 1MG TABLET PO SCH (09:44)
[2019-11-13] MEDS: AMLODIPINE 5MG TABLET PO SCH (09:45)
[2019-11-13] MEDS: THIAMINE HCL 100MG TABLET PO SCH ×2 (09:45→16:05)
[2019-11-13] MEDS: ASCORBIC ACID 500 MG TABLET PO SCH ×2 (10:49→16:04)
[2019-11-13 10:56] LABS: BASOPHILS % 0.3 % (0.0-2.0); EOSINOPHILS % 0.3 % (0.0-5.0); HEMATOCRIT. 32.5 % (36.0-48.0); HEMOGLOBIN. 10.9 g/dL (12.0-16.0); LYMPHOCYTES % 23.1 % (20.0-50.0); MEAN CORPUSCULAR HEMOGLOBIN 33.4 pg (28.0-32.0); MEAN CORPUSCULAR VOLUME 99.4 fL (81.0-99.0); MEAN PLATELET VOLUME 9.1 fl (7.4-10.4); MONOCYTES % 7.4 % (2.0-8.0); NEUTROPHILS % 68.9 % (40.0-76.0); PLATELET 150 x1000/uL (130-400); RED BLOOD CELL COUNT 3.27 mill/uL (4.2-5.4); RED CELL DISTRIBUTION WIDTH 14.2 % (11.6-14.6)
[2019-11-13 11:00] LABS: CHLORIDE 115 mEq/L (98-107)
[2019-11-13 11:06] LABS: PHOSPHORUS 2.6 mg/dL (2.5-4.9)
[2019-11-13] MEDS: HYDROXYCHLOROQUINE SULFATE 200MG TABLET PO SCH ×2 (11:32→23:39)
[2019-11-13] MEDS: POTASSIUM CHLORIDE 20MEQ/PACKET PO SCH ×2 (13:03→21:09)
[2019-11-13] MEDS: ACETAMINOPHEN 650MG/20.3ML UDC GT PRN (13:33)
[2019-11-13 16:00] VITALS: BP 144/96
[2019-11-13 20:00] VITALS: BP 93/74
[2019-11-13] MEDS: ATORVASTATIN CALCIUM 20MG TABLET PO SCH (21:09)
[2019-11-14] VITALS (7 sets, daily range): BP systolic 98–161; BP diastolic 71–108
[2019-11-14] MEDS: ACETAMINOPHEN 650MG/20.3ML UDC GT PRN ×2 (04:56→13:58)
[2019-11-14] MEDS: ACETAMINOPHEN 500MG TABLET PO SCH ×3 (08:33→22:08)
[2019-11-14] MEDS: DOCUSATE SODIUM 250MG CAPSULE PO SCH (08:34)
[2019-11-14 09:51] LABS: BASOPHILS % 0.4 % (0.0-2.0); EOSINOPHILS % 0.4 % (0.0-5.0); HEMOGLOBIN. 11.4 g/dL (12.0-16.0); LYMPHOCYTES % 21.4 % (20.0-50.0); MEAN CORPUSCULAR HEMOGLOBIN 33.1 pg (28.0-32.0); MEAN CORPUSCULAR VOLUME 98.6 fL (81.0-99.0); MEAN PLATELET VOLUME 10.4 fl (7.4-10.4); MONOCYTES % 7.4 % (2.0-8.0); NEUTROPHILS % 70.4 % (40.0-76.0); PLATELET 148 x1000/uL (130-400); RED BLOOD CELL COUNT 3.45 mill/uL (4.2-5.4); RED CELL DISTRIBUTION WIDTH 14.4 % (11.6-14.6)
[2019-11-14 10:06] LABS: CHLORIDE 114 mEq/L (98-107)
[2019-11-14 10:16] LABS: PHOSPHORUS 2.5 mg/dL (2.5-4.9)
[2019-11-14] MEDS: ASCORBIC ACID 500 MG TABLET PO SCH ×2 (11:00→16:48)
[2019-11-14] MEDS: ZINC SULFATE 220 MG ( 50 ) CAPSULE PO SCH (11:00)
[2019-11-14] MEDS: THIAMINE HCL 100MG TABLET PO SCH ×2 (11:00→16:48)
[2019-11-14] MEDS: AZITHROMYCIN 250 MG TABLET GT SCH (11:00)
[2019-11-14] MEDS: HYDROXYCHLOROQUINE SULFATE 200MG TABLET PO SCH ×2 (11:00→22:07)
[2019-11-14] MEDS: APIXABAN 2.5 MG TABLET GT SCH ×2 (11:01→22:08)
[2019-11-14] MEDS: CHOLECALCIFEROL (D3) 1000 UNIT TABLET GT SCH (11:01)
[2019-11-14] MEDS: FOLIC ACID 1MG TABLET PO SCH (11:01)
[2019-11-14] MEDS: POTASSIUM-SODIUM PHOSPHATE POWDER PACKET GT SCH ×2 (11:01→16:47)
[2019-11-14] MEDS: ACETAMINOPHEN 650MG/20.3ML UDC GT SCH ×2 (11:02→21:00)
[2019-11-14] MEDS: AMLODIPINE 5MG TABLET PO SCH (11:02)
[2019-11-14] MEDS: DOCUSATE SODIUM SUGAR FREE 100MG/10ML UDC PO SCH (13:58)
[2019-11-14] MEDS: DEXT 5%/0.45% NACL KCL 10MEQ/L 1,000 ML IV SCH ×2 (16:48→20:00)
[2019-11-14] MEDS: ATORVASTATIN CALCIUM 20MG TABLET PO SCH (22:07)
[2019-11-15] VITALS: BP 162/88
[2019-11-15] MEDS: CEFTRIAXONE 1 G PREMIX 50 ML IV SCH (01:44)
[2019-11-15 04:00] VITALS: BP 153/76
[2019-11-15] MEDS ORDERED: AMLODIPINE 5MG TABLET PO NR (04:15)
[2019-11-15 08:00] VITALS: BP 137/89
[2019-11-15] MEDS: FOLIC ACID 1MG TABLET PO SCH (09:07)
[2019-11-15] MEDS: DOCUSATE SODIUM SUGAR FREE 100MG/10ML UDC PO SCH (09:07)
[2019-11-15] MEDS: APIXABAN 2.5 MG TABLET GT SCH ×2 (09:07→21:21)
[2019-11-15] MEDS: THIAMINE HCL 100MG TABLET PO SCH ×2 (09:07→16:33)
[2019-11-15] MEDS: ACETAMINOPHEN 650MG/20.3ML UDC GT SCH ×2 (09:07→21:20)
[2019-11-15] MEDS: POTASSIUM-SODIUM PHOSPHATE POWDER PACKET GT SCH ×2 (09:11→16:33)
[2019-11-15] MEDS: ASCORBIC ACID 500 MG TABLET PO SCH ×2 (09:11→16:33)
[2019-11-15] MEDS: CHOLECALCIFEROL (D3) 1000 UNIT TABLET GT SCH (09:11)
[2019-11-15] MEDS: AZITHROMYCIN 250 MG TABLET GT SCH (09:11)
[2019-11-15] MEDS: ZINC SULFATE 220 MG ( 50 ) CAPSULE PO SCH (09:12)
[2019-11-15] MEDS: HYDROXYCHLOROQUINE SULFATE 200MG TABLET PO SCH ×2 (10:22→23:22)
[2019-11-15 12:00] VITALS: BP 154/79
[2019-11-15] MEDS: DEXT 5%/0.45% NACL KCL 10MEQ/L 1,000 ML IV SCH ×2 (14:15→22:40)
[2019-11-15 16:00] VITALS: BP 134/70
[2019-11-15] MEDS: ACETAMINOPHEN 650MG/20.3ML UDC GT PRN (16:33)
[2019-11-15 20:00] VITALS: BP 139/86
[2019-11-15] MEDS: AMLODIPINE 5MG TABLET PO SCH (21:21)
[2019-11-15] MEDS: ATORVASTATIN CALCIUM 20MG TABLET PO SCH (21:21)
[2019-11-16] VITALS: BP 130/85
[2019-11-16] MEDS: CEFTRIAXONE 1 G PREMIX 50 ML IV SCH (00:48)
[2019-11-16] MEDS: DEXT 5%/0.45% NACL KCL 10MEQ/L 1,000 ML IV SCH ×2 (00:48→11:22)
[2019-11-16 04:00] VITALS: BP 153/78
[2019-11-16 05:49] LABS: CHLORIDE 113 mEq/L (98-107)
[2019-11-16 06:08] LABS: BASOPHILS % 0.4 % (0.0-2.0); EOSINOPHILS % 1.1 % (0.0-5.0); HEMATOCRIT. 30.9 % (36.0-48.0); HEMOGLOBIN. 10.6 g/dL (12.0-16.0); LYMPHOCYTES % 28.4 % (20.0-50.0); MEAN CORPUSCULAR HEMOGLOBIN 33.2 pg (28.0-32.0); MEAN CORPUSCULAR VOLUME 96.6 fL (81.0-99.0); MONOCYTES % 6.1 % (2.0-8.0); PLATELET 203 x1000/uL (130-400); RED CELL DISTRIBUTION WIDTH 14.3 % (11.6-14.6)
[2019-11-16 08:00] VITALS: BP 147/69
[2019-11-16] MEDS ORDERED: POTASSIUM CHLORIDE 20MEQ/PACKET PO NR (09:15)
[2019-11-16] MEDS ORDERED: MAGNESIUM 2 G PREMIX 50 ML IV NR (10:00)
[2019-11-16] MEDS: ZINC SULFATE 220 MG ( 50 ) CAPSULE PO SCH (10:48)
[2019-11-16] MEDS: HYDROXYCHLOROQUINE SULFATE 200MG TABLET PO SCH (10:48)
[2019-11-16] MEDS: ACETAMINOPHEN 650MG/20.3ML UDC GT SCH ×2 (10:48→21:59)
[2019-11-16] MEDS: POTASSIUM-SODIUM PHOSPHATE POWDER PACKET GT SCH ×2 (10:49→18:50)
[2019-11-16] MEDS: THIAMINE HCL 100MG TABLET PO SCH ×2 (10:49→18:50)
[2019-11-16] MEDS: CHOLECALCIFEROL (D3) 1000 UNIT TABLET GT SCH (10:49)
[2019-11-16] MEDS: APIXABAN 2.5 MG TABLET GT SCH ×2 (10:49→22:00)
[2019-11-16] MEDS: ASCORBIC ACID 500 MG TABLET PO SCH ×2 (10:55→18:51)
[2019-11-16] MEDS: AMLODIPINE 5MG TABLET PO SCH ×2 (10:56→22:00)
[2019-11-16] MEDS: FOLIC ACID 1MG TABLET PO SCH (10:56)
[2019-11-16] MEDS: DOCUSATE SODIUM SUGAR FREE 100MG/10ML UDC PO SCH (10:57)
[2019-11-16 12:07] VITALS: BP 112/80
[2019-11-16 16:11] VITALS: BP 160/71
[2019-11-16] MEDS ORDERED: POTASSIUM CHLORIDE 20MEQ/PACKET GT SCH (17:00)
[2019-11-16 20:00] VITALS: BP 148/76
[2019-11-16] MEDS: ATORVASTATIN CALCIUM 20MG TABLET PO SCH (22:00)
[2019-11-17] VITALS: BP 160/72
[2019-11-17 04:00] VITALS: BP 142/53
[2019-11-17 07:08] LABS: BASOPHILS % 0.5 % (0.0-2.0); HEMATOCRIT. 29.3 % (36.0-48.0); LYMPHOCYTES % 26.6 % (20.0-50.0); MEAN CORPUSCULAR HEMOGLOBIN 33.2 pg (28.0-32.0); MEAN CORPUSCULAR VOLUME 97.2 fL (81.0-99.0); MEAN PLATELET VOLUME 8.7 fl (7.4-10.4); MONOCYTES % 7.5 % (2.0-8.0); NEUTROPHILS % 64.4 % (40.0-76.0); PLATELET 207 x1000/uL (130-400); RED BLOOD CELL COUNT 3.02 mill/uL (4.2-5.4); RED CELL DISTRIBUTION WIDTH 14.8 % (11.6-14.6)
[2019-11-17 07:46] LABS: CHLORIDE 119 mEq/L (98-107)
[2019-11-17 07:56] LABS: PHOSPHORUS 2.5 mg/dL (2.5-4.9)
[2019-11-17 08:00] VITALS: BP 158/100
[2019-11-17] MEDS: DOCUSATE SODIUM SUGAR FREE 100MG/10ML UDC PO SCH (09:00)
[2019-11-17] MEDS: FOLIC ACID 1MG TABLET PO SCH (09:35)
[2019-11-17] MEDS: ASCORBIC ACID 500 MG TABLET PO SCH (09:35)
[2019-11-17] MEDS: AMLODIPINE 5MG TABLET PO SCH ×2 (09:35→22:52)
[2019-11-17] MEDS: ZINC SULFATE 220 MG ( 50 ) CAPSULE PO SCH (09:35)
[2019-11-17] MEDS: THIAMINE HCL 100MG TABLET PO SCH (09:35)
[2019-11-17] MEDS: CHOLECALCIFEROL (D3) 1000 UNIT TABLET GT SCH (09:35)
[2019-11-17] MEDS: APIXABAN 2.5 MG TABLET GT SCH ×2 (09:35→22:53)
[2019-11-17] MEDS: ACETAMINOPHEN 650MG/20.3ML UDC GT SCH (09:36)
[2019-11-17 12:00] VITALS: BP 111/88
[2019-11-17 16:00] VITALS: BP 112/79
[2019-11-17 20:00] VITALS: BP 132/82
[2019-11-17] MEDS: ATORVASTATIN CALCIUM 20MG TABLET PO SCH (22:53)
[2019-11-18 00:01] VITALS: BP 128/60
[2019-11-18 04:00] VITALS: BP 140/79
[2019-11-18 08:00] VITALS: BP 169/82
[2019-11-18] MEDS: AMLODIPINE 5MG TABLET PO SCH ×2 (08:01→22:21)
[2019-11-18] MEDS: FOLIC ACID 1MG TABLET PO SCH (08:01)
[2019-11-18] MEDS: ACETAMINOPHEN 650MG/20.3ML UDC GT SCH ×2 (08:01→22:22)
[2019-11-18] MEDS: APIXABAN 2.5 MG TABLET GT SCH ×2 (08:01→22:21)
[2019-11-18] MEDS: ZINC SULFATE 220 MG ( 50 ) CAPSULE PO SCH (08:01)
[2019-11-18] MEDS: CHOLECALCIFEROL (D3) 1000 UNIT TABLET GT SCH (08:01)
[2019-11-18] MEDS: DOCUSATE SODIUM SUGAR FREE 100MG/10ML UDC PO SCH (08:05)
[2019-11-18 12:00] VITALS: BP 147/74
[2019-11-18 16:00] VITALS: BP 116/51
[2019-11-18 20:00] VITALS: BP 134/50
[2019-11-18] MEDS: ATORVASTATIN CALCIUM 20MG TABLET PO SCH (22:21)
[2019-11-19] VITALS: BP 141/66
[2019-11-19 04:00] VITALS: BP 142/71
[2019-11-19 08:00] VITALS: BP 126/88
[2019-11-19] MEDS: ACETAMINOPHEN 650MG/20.3ML UDC GT SCH ×2 (08:14→21:19)
[2019-11-19] MEDS: CHOLECALCIFEROL (D3) 1000 UNIT TABLET GT SCH (08:15)
[2019-11-19] MEDS: ZINC SULFATE 220 MG ( 50 ) CAPSULE PO SCH (08:15)
[2019-11-19] MEDS: FOLIC ACID 1MG TABLET PO SCH (08:15)
[2019-11-19] MEDS: APIXABAN 2.5 MG TABLET GT SCH ×2 (08:15→21:19)
[2019-11-19] MEDS: DOCUSATE SODIUM SUGAR FREE 100MG/10ML UDC PO SCH (08:17)
[2019-11-19] MEDS: AMLODIPINE 5MG TABLET PO SCH ×2 (08:55→21:00)
[2019-11-19 12:00] VITALS: BP 110/69
[2019-11-19 13:13] LABS: BASOPHILS % 0.4 % (0.0-2.0); EOSINOPHILS % 2.9 % (0.0-5.0); HEMATOCRIT. 25.6 % (36.0-48.0); HEMOGLOBIN. 8.9 g/dL (12.0-16.0); LYMPHOCYTES % 19.8 % (20.0-50.0); MEAN CORPUSCULAR HEMOGLOBIN 33.5 pg (28.0-32.0); MEAN CORPUSCULAR VOLUME 96.8 fL (81.0-99.0); MEAN PLATELET VOLUME 8.2 fl (7.4-10.4); MONOCYTES % 9.5 % (2.0-8.0); NEUTROPHILS % 67.4 % (40.0-76.0); PLATELET 266 x1000/uL (130-400); RED BLOOD CELL COUNT 2.64 mill/uL (4.2-5.4); RED CELL DISTRIBUTION WIDTH 14.2 % (11.6-14.6)
[2019-11-19 13:18] LABS: CHLORIDE 118 mEq/L (98-107)
[2019-11-19 16:00] VITALS: BP 111/74
[2019-11-19 20:00] VITALS: BP 90/60
[2019-11-19] MEDS: ATORVASTATIN CALCIUM 20MG TABLET PO SCH (21:19)
[2019-11-20] VITALS: BP 110/68
[2019-11-20 04:00] VITALS: BP 126/50
[2019-11-20 08:00] VITALS: BP 110/78
[2019-11-20] MEDS: ACETAMINOPHEN 650MG/20.3ML UDC GT SCH ×2 (10:01→20:51)
[2019-11-20] MEDS: ZINC SULFATE 220 MG ( 50 ) CAPSULE PO SCH (10:02)
[2019-11-20] MEDS: APIXABAN 2.5 MG TABLET GT SCH ×2 (10:02→20:50)
[2019-11-20] MEDS: AMLODIPINE 5MG TABLET PO SCH ×2 (10:02→20:50)
[2019-11-20] MEDS: CHOLECALCIFEROL (D3) 1000 UNIT TABLET GT SCH (10:02)
[2019-11-20] MEDS: FOLIC ACID 1MG TABLET PO SCH (10:02)
[2019-11-20] MEDS: DOCUSATE SODIUM SUGAR FREE 100MG/10ML UDC PO SCH (10:04)
[2019-11-20] MEDS: DEXTROSE 5% WATER 1,000 ML IV SCH (11:33)
[2019-11-20 16:00] VITALS: BP 127/50
[2019-11-20] MEDS: ACETAMINOPHEN 650MG/20.3ML UDC GT PRN (17:08)
[2019-11-20 20:00] VITALS: BP 154/81
[2019-11-20] MEDS: ATORVASTATIN CALCIUM 20MG TABLET PO SCH (20:50)
[2019-11-21] VITALS: BP 141/84
[2019-11-21 04:00] VITALS: BP 145/79
[2019-11-21] MEDS: DEXTROSE 5% WATER 1,000 ML IV SCH ×2 (06:09→22:12)
[2019-11-21 06:54] LABS: BASOPHILS % 0.6 % (0.0-2.0); EOSINOPHILS % 2.9 % (0.0-5.0); HEMATOCRIT. 28.4 % (36.0-48.0); HEMOGLOBIN. 9.6 g/dL (12.0-16.0); LYMPHOCYTES % 22.5 % (20.0-50.0); MEAN CORPUSCULAR HEMOGLOBIN 33.1 pg (28.0-32.0); MEAN CORPUSCULAR VOLUME 98.1 fL (81.0-99.0); MEAN PLATELET VOLUME 8.5 fl (7.4-10.4); MONOCYTES % 9.7 % (2.0-8.0); NEUTROPHILS % 64.3 % (40.0-76.0); PLATELET 340 x1000/uL (130-400); RED BLOOD CELL COUNT 2.89 mill/uL (4.2-5.4); RED CELL DISTRIBUTION WIDTH 14.2 % (11.6-14.6)
[2019-11-21 07:11] LABS: CHLORIDE 113 mEq/L (98-107)
[2019-11-21 08:00] VITALS: BP 148/70
[2019-11-21] MEDS: DOCUSATE SODIUM SUGAR FREE 100MG/10ML UDC PO SCH (09:00)
[2019-11-21] MEDS: ZINC SULFATE 220 MG ( 50 ) CAPSULE PO SCH (09:59)
[2019-11-21] MEDS: FOLIC ACID 1MG TABLET PO SCH (09:59)
[2019-11-21] MEDS: ACETAMINOPHEN 650MG/20.3ML UDC GT SCH ×2 (09:59→22:12)
[2019-11-21] MEDS: AMLODIPINE 5MG TABLET PO SCH ×2 (09:59→22:13)
[2019-11-21] MEDS: APIXABAN 2.5 MG TABLET GT SCH ×2 (09:59→22:14)
[2019-11-21] MEDS: CHOLECALCIFEROL (D3) 1000 UNIT TABLET GT SCH (10:04)
[2019-11-21 12:00] VITALS: BP 144/101
[2019-11-21 20:00] VITALS: BP 118/55
[2019-11-21] MEDS: ATORVASTATIN CALCIUM 20MG TABLET PO SCH (22:13)
[2019-11-22] VITALS: BP 120/80
[2019-11-22 04:00] VITALS: BP 122/64
[2019-11-22] MEDS: FOLIC ACID 1MG TABLET PO SCH (09:52)
[2019-11-22] MEDS: APIXABAN 2.5 MG TABLET GT SCH ×2 (09:52→21:59)
[2019-11-22] MEDS: ZINC SULFATE 220 MG ( 50 ) CAPSULE PO SCH (09:52)
[2019-11-22] MEDS: CHOLECALCIFEROL (D3) 1000 UNIT TABLET GT SCH (09:52)
[2019-11-22] MEDS: ACETAMINOPHEN 650MG/20.3ML UDC GT SCH ×2 (09:53→22:00)
[2019-11-22] MEDS: AMLODIPINE 5MG TABLET PO SCH ×2 (09:55→21:59)
[2019-11-22] MEDS: DOCUSATE SODIUM SUGAR FREE 100MG/10ML UDC PO SCH (09:55)
[2019-11-22 12:00] VITALS: BP 114/52
[2019-11-22 16:00] VITALS: BP 118/64
[2019-11-22 20:00] VITALS: BP 148/68
[2019-11-22] MEDS: ATORVASTATIN CALCIUM 20MG TABLET PO SCH (21:59)
[2019-11-22] MEDS: DEXTROSE 5% WATER 1,000 ML IV SCH (22:04)
[2019-11-23] VITALS: BP 134/60
[2019-11-23 06:00] VITALS: BP 144/69
[2019-11-23 08:00] VITALS: BP 122/68
[2019-11-23] MEDS: APIXABAN 2.5 MG TABLET GT SCH ×2 (09:37→20:27)
[2019-11-23] MEDS: ACETAMINOPHEN 650MG/20.3ML UDC GT SCH ×2 (09:37→20:28)
[2019-11-23] MEDS: ZINC SULFATE 220 MG ( 50 ) CAPSULE PO SCH (09:37)
[2019-11-23] MEDS: DOCUSATE SODIUM SUGAR FREE 100MG/10ML UDC PO SCH (09:37)
[2019-11-23] MEDS: CHOLECALCIFEROL (D3) 1000 UNIT TABLET GT SCH (09:37)
[2019-11-23] MEDS: FOLIC ACID 1MG TABLET PO SCH (09:37)
[2019-11-23] MEDS: AMLODIPINE 5MG TABLET PO SCH (09:38)
[2019-11-23 11:12] LABS: BASOPHILS % 0.4 % (0.0-2.0); HEMATOCRIT. 29.7 % (36.0-48.0); LYMPHOCYTES % 19.1 % (20.0-50.0); MEAN CORPUSCULAR HEMOGLOBIN 32.9 pg (28.0-32.0); MEAN CORPUSCULAR VOLUME 98.1 fL (81.0-99.0); MEAN PLATELET VOLUME 9.2 fl (7.4-10.4); MONOCYTES % 6.8 % (2.0-8.0); NEUTROPHILS % 71.7 % (40.0-76.0); PLATELET 382 x1000/uL (130-400); RED BLOOD CELL COUNT 3.03 mill/uL (4.2-5.4); RED CELL DISTRIBUTION WIDTH 14.5 % (11.6-14.6)
[2019-11-23 11:20] LABS: CHLORIDE 105 mEq/L (98-107)
[2019-11-23 11:26] LABS: PHOSPHORUS 2.3 mg/dL (2.5-4.9)
[2019-11-23 12:00] VITALS: BP 92/72
[2019-11-23] MEDS ORDERED: SODIUM CHLORIDE 0.9% 200 ML IV ONE (13:15)
[2019-11-23] MEDS: DEXTROSE 5% WATER 1,000 ML IV SCH (13:24)
[2019-11-23] MEDS: SODIUM CHLORIDE 0.9% 1,000 ML IV SCH (15:04)
[2019-11-23] MEDS: MIDODRINE HCL 2.5MG TABLET PO SCH ×2 (15:04→17:00)
[2019-11-23 16:00] VITALS: BP 132/111
[2019-11-23 20:00] VITALS: BP 122/74
[2019-11-23] MEDS: ATORVASTATIN CALCIUM 20MG TABLET PO SCH (20:27)
[2019-11-24] VITALS: BP 114/62
[2019-11-24] MEDS: SODIUM CHLORIDE 0.9% 1,000 ML IV SCH ×2 (02:40→17:34)
[2019-11-24 04:00] VITALS: BP 127/73
[2019-11-24 08:00] VITALS: BP 126/51
[2019-11-24] MEDS: DOCUSATE SODIUM SUGAR FREE 100MG/10ML UDC PO SCH (09:00)
[2019-11-24] MEDS: MIDODRINE HCL 2.5MG TABLET PO SCH ×3 (10:49→17:00)
[2019-11-24] MEDS: CHOLECALCIFEROL (D3) 1000 UNIT TABLET GT SCH (10:49)
[2019-11-24] MEDS: APIXABAN 2.5 MG TABLET GT SCH ×2 (10:50→23:11)
[2019-11-24] MEDS: FOLIC ACID 1MG TABLET PO SCH (10:50)
[2019-11-24] MEDS: ZINC SULFATE 220 MG ( 50 ) CAPSULE PO SCH (10:50)
[2019-11-24] MEDS: ACETAMINOPHEN 650MG/20.3ML UDC GT SCH ×2 (10:51→23:11)
[2019-11-24 12:00] VITALS: BP 130/66
[2019-11-24 16:00] VITALS: BP 148/58
[2019-11-24] MEDS: SODIUM CHLORIDE 45ML SPRAY NS SCH (16:04)
[2019-11-24 19:42] LABS: CLARITY URINE CLEAR (CLEAR); COLOR URINE YELLOW (YELLOW); KETONES URINE NEGATIVE (NEGATIVE); LEUKOCYTE ESTERASE URINE 2+ (NEGATIVE); NITRITE URINE NEGATIVE (NEGATIVE); OCCULT BLOOD URINE NEGATIVE (NEGATIVE); PROTEIN URINE NEGATIVE (NEGATIVE)
[2019-11-24 20:00] VITALS: BP 145/61
[2019-11-24] MEDS: ATORVASTATIN CALCIUM 20MG TABLET PO SCH (23:11)
[2019-11-25] VITALS (8 sets, daily range): BP systolic 97–144; BP diastolic 60–87
[2019-11-25] MEDS: SODIUM CHLORIDE 45ML SPRAY NS SCH ×4 (00:30→18:03)
[2019-11-25] MEDS: SODIUM CHLORIDE 0.9% 1,000 ML IV SCH ×2 (05:06→21:06)
[2019-11-25] MEDS: DOCUSATE SODIUM SUGAR FREE 100MG/10ML UDC PO SCH (09:00)
[2019-11-25] MEDS: APIXABAN 2.5 MG TABLET GT SCH ×2 (09:15→21:03)
[2019-11-25] MEDS: ACETAMINOPHEN 650MG/20.3ML UDC GT SCH ×2 (09:17→21:03)
[2019-11-25] MEDS: ZINC SULFATE 220 MG ( 50 ) CAPSULE PO SCH (09:17)
[2019-11-25] MEDS: FOLIC ACID 1MG TABLET PO SCH (09:17)
[2019-11-25] MEDS: CHOLECALCIFEROL (D3) 1000 UNIT TABLET GT SCH (09:17)
[2019-11-25] MEDS ORDERED: MIDODRINE HCL 2.5MG TABLET PO PRN (10:00)
[2019-11-25] MEDS: FLUCONAZOLE 100MG TABLET GT SCH (12:54)
[2019-11-25] MEDS: ATORVASTATIN CALCIUM 20MG TABLET PO SCH (21:03)
[2019-11-26] VITALS: BP 174/75
[2019-11-26] MEDS: SODIUM CHLORIDE 45ML SPRAY NS SCH ×4 (00:32→17:51)
[2019-11-26 04:00] VITALS: BP 162/72
[2019-11-26 08:00] VITALS: BP 158/77
[2019-11-26] MEDS: DOCUSATE SODIUM SUGAR FREE 100MG/10ML UDC PO SCH (08:52)
[2019-11-26] MEDS: ZINC SULFATE 220 MG ( 50 ) CAPSULE PO SCH (08:52)
[2019-11-26] MEDS: CHOLECALCIFEROL (D3) 1000 UNIT TABLET GT SCH (08:52)
[2019-11-26] MEDS: APIXABAN 2.5 MG TABLET GT SCH ×2 (08:52→22:15)
[2019-11-26] MEDS: FOLIC ACID 1MG TABLET PO SCH (08:52)
[2019-11-26] MEDS: FLUCONAZOLE 100MG TABLET GT SCH (08:52)
[2019-11-26] MEDS: SODIUM CHLORIDE 0.9% 1,000 ML IV SCH (08:53)
[2019-11-26] MEDS: ACETAMINOPHEN 650MG/20.3ML UDC GT SCH ×2 (09:15→22:14)
[2019-11-26 12:00] VITALS: BP 137/54
[2019-11-26] MEDS: DIPHENHYDRAMINE 50MG/ML VIAL IV SCH ×2 (13:07→22:14)
[2019-11-26] MEDS: METHYLPREDNISOLONE SOD SUCC 125 MG/2 ML VIAL IV SCH ×2 (13:07→22:14)
[2019-11-26 14:43] LABS: CHLORIDE 112 mEq/L (98-107)
[2019-11-26 14:51] LABS: CREATINE KINASE 123 IU/L (26-192)
[2019-11-26 16:00] VITALS: BP 142/88
[2019-11-26 20:00] VITALS: BP 164/88
[2019-11-26] MEDS: ATORVASTATIN CALCIUM 20MG TABLET PO SCH (22:15)
[2019-11-26] MEDS: FAMOTIDINE 20MG TABLET PO SCH (22:15)
[2019-11-27] VITALS (7 sets, daily range): BP systolic 11–142; BP diastolic 60–75
[2019-11-27] MEDS: SODIUM CHLORIDE 45ML SPRAY NS SCH ×4 (00:56→17:00)
[2019-11-27] MEDS: DIPHENHYDRAMINE 50MG/ML VIAL IV SCH ×3 (06:19→21:13)
[2019-11-27] MEDS: METHYLPREDNISOLONE SOD SUCC 125 MG/2 ML VIAL IV SCH ×3 (06:19→21:13)
[2019-11-27] MEDS: APIXABAN 2.5 MG TABLET GT SCH ×2 (09:07→21:13)
[2019-11-27] MEDS: FOLIC ACID 1MG TABLET PO SCH (09:07)
[2019-11-27] MEDS: FAMOTIDINE 20MG TABLET PO SCH ×2 (09:07→21:13)
[2019-11-27] MEDS: CHOLECALCIFEROL (D3) 1000 UNIT TABLET GT SCH (09:07)
[2019-11-27] MEDS: ZINC SULFATE 220 MG ( 50 ) CAPSULE PO SCH (09:07)
[2019-11-27] MEDS: DOCUSATE SODIUM SUGAR FREE 100MG/10ML UDC PO SCH (09:08)
[2019-11-27] MEDS: ACETAMINOPHEN 650MG/20.3ML UDC GT SCH ×2 (09:08→21:13)
[2019-11-27 10:28] LABS: HEMATOCRIT. 27.1 % (36.0-48.0); HEMOGLOBIN. 9.3 g/dL (12.0-16.0); MEAN CORPUSCULAR HEMOGLOBIN 33.5 pg (28.0-32.0); MEAN CORPUSCULAR VOLUME 98.2 fL (81.0-99.0); MEAN PLATELET VOLUME 8.7 fl (7.4-10.4); PLATELET 447 x1000/uL (130-400); RED BLOOD CELL COUNT 2.76 mill/uL (4.2-5.4)
[2019-11-27 10:40] LABS: CHLORIDE 111 mEq/L (98-107)
[2019-11-27 13:02] LABS: PLATELET ESTIMATE INCREASED
[2019-11-27] MEDS: ATORVASTATIN CALCIUM 20MG TABLET PO SCH (21:13)
[2019-11-28] VITALS: BP 142/67
[2019-11-28] MEDS: SODIUM CHLORIDE 45ML SPRAY NS SCH ×4 (00:53→17:29)
[2019-11-28 04:00] VITALS: BP 145/65
[2019-11-28 04:48] LABS: HEMATOCRIT. 25.7 % (36.0-48.0); HEMOGLOBIN. 8.7 g/dL (12.0-16.0); MEAN CORPUSCULAR HEMOGLOBIN 33.2 pg (28.0-32.0); MEAN CORPUSCULAR VOLUME 97.8 fL (81.0-99.0); MEAN PLATELET VOLUME 8.7 fl (7.4-10.4); PLATELET 459 x1000/uL (130-400); RED BLOOD CELL COUNT 2.63 mill/uL (4.2-5.4)
[2019-11-28 04:56] LABS: CHLORIDE 111 mEq/L (98-107)
[2019-11-28 05:40] LABS: PLATELET ESTIMATE INCREASED
[2019-11-28] MEDS: METHYLPREDNISOLONE SOD SUCC 125 MG/2 ML VIAL IV SCH ×2 (05:57→17:34)
[2019-11-28] MEDS: DIPHENHYDRAMINE 50MG/ML VIAL IV SCH (05:58)
[2019-11-28 08:00] VITALS: BP 157/63
[2019-11-28] MEDS ORDERED: SODIUM CHLORIDE 0.45% 1,000 ML IV ONE (08:15)
[2019-11-28] MEDS ORDERED: PANTOPRAZOLE 40MG DR TABLET PO NR (08:15)
[2019-11-28 09:25] LABS: TOTAL IRON BINDING CAPACITY 237 ug/dL (250-450)
[2019-11-28] MEDS: AMOXICILLIN 500 MG CAPSULE PO SCH ×2 (09:46→22:27)
[2019-11-28] MEDS: ACETAMINOPHEN 650MG/20.3ML UDC GT SCH ×2 (09:46→22:27)
[2019-11-28] MEDS: APIXABAN 2.5 MG TABLET GT SCH ×2 (09:47→22:27)
[2019-11-28] MEDS: FOLIC ACID 1MG TABLET PO SCH (09:47)
[2019-11-28] MEDS: CHOLECALCIFEROL (D3) 1000 UNIT TABLET GT SCH (09:47)
[2019-11-28] MEDS: ZINC SULFATE 220 MG ( 50 ) CAPSULE PO SCH (09:47)
[2019-11-28] MEDS: FERROUS SULFATE 300MG/5ML UDC GT SCH ×3 (09:50→17:30)
[2019-11-28] MEDS: DOCUSATE SODIUM SUGAR FREE 100MG/10ML UDC PO SCH (09:51)
[2019-11-28 12:00] VITALS: BP 133/82
[2019-11-28] MEDS ORDERED: AMOXICILLIN 250MG CAPSULE GT SCH (14:00)
[2019-11-28 16:00] VITALS: BP 146/44
[2019-11-28 20:00] VITALS: BP 119/45
[2019-11-28] MEDS: ATORVASTATIN CALCIUM 20MG TABLET PO SCH (22:27)
[2019-11-29] VITALS: BP 127/69
[2019-11-29] MEDS: SODIUM CHLORIDE 45ML SPRAY NS SCH ×3 (00:05→12:00)
[2019-11-29 04:00] VITALS: BP 139/61
[2019-11-29] MEDS: METHYLPREDNISOLONE SOD SUCC 125 MG/2 ML VIAL IV SCH (06:46)
[2019-11-29] MEDS: PANTOPRAZOLE 40MG DR TABLET PO SCH (06:46)
[2019-11-29 08:00] VITALS: BP 115/90
[2019-11-29] MEDS: AMOXICILLIN 500 MG CAPSULE PO SCH ×2 (09:23→21:08)
[2019-11-29] MEDS: DOCUSATE SODIUM SUGAR FREE 100MG/10ML UDC PO SCH (09:23)
[2019-11-29] MEDS: ZINC SULFATE 220 MG ( 50 ) CAPSULE PO SCH (09:23)
[2019-11-29] MEDS: FOLIC ACID 1MG TABLET PO SCH (09:23)
[2019-11-29] MEDS: APIXABAN 2.5 MG TABLET GT SCH ×2 (09:24→21:09)
[2019-11-29] MEDS: FERROUS SULFATE 300MG/5ML UDC GT SCH ×3 (09:24→18:10)
[2019-11-29] MEDS: ACETAMINOPHEN 650MG/20.3ML UDC GT SCH ×2 (09:24→21:08)
[2019-11-29] MEDS: CHOLECALCIFEROL (D3) 1000 UNIT TABLET GT SCH (09:32)
[2019-11-29 12:00] VITALS: BP 148/79
[2019-11-29 15:22] LABS: HEMATOCRIT. 27.2 % (36.0-48.0); HEMOGLOBIN. 9.2 g/dL (12.0-16.0); MEAN CORPUSCULAR HEMOGLOBIN 33.4 pg (28.0-32.0); MEAN CORPUSCULAR VOLUME 98.5 fL (81.0-99.0); MEAN PLATELET VOLUME 8.5 fl (7.4-10.4); PLATELET 415 x1000/uL (130-400); RED BLOOD CELL COUNT 2.76 mill/uL (4.2-5.4)
[2019-11-29 15:34] LABS: CHLORIDE 107 mEq/L (98-107)
[2019-11-29 16:00] VITALS: BP 164/73
[2019-11-29 17:13] LABS: PLATELET ESTIMATE INCREASED
[2019-11-29 20:00] VITALS: BP 155/69
[2019-11-29] MEDS: ATORVASTATIN CALCIUM 20MG TABLET PO SCH (21:08)
[2019-11-30] VITALS: BP 143/65
[2019-11-30] MEDS: SODIUM CHLORIDE 45ML SPRAY NS SCH ×4 (01:40→18:00)
[2019-11-30 04:00] VITALS: BP 161/88
[2019-11-30] MEDS: METHYLPREDNISOLONE SOD SUCC 125 MG/2 ML VIAL IV SCH (06:53)
[2019-11-30] MEDS: PANTOPRAZOLE 40MG DR TABLET PO SCH (06:53)
[2019-11-30 06:54] LABS: BASOPHILS % 0.5 % (0.0-2.0); EOSINOPHILS % 0.3 % (0.0-5.0); HEMATOCRIT. 30.1 % (36.0-48.0); HEMOGLOBIN. 10.2 g/dL (12.0-16.0); LYMPHOCYTES % 17.2 % (20.0-50.0); MEAN CORPUSCULAR HEMOGLOBIN 33.4 pg (28.0-32.0); MEAN CORPUSCULAR VOLUME 98.4 fL (81.0-99.0); MEAN PLATELET VOLUME 8.5 fl (7.4-10.4); MONOCYTES % 13.8 % (2.0-8.0); NEUTROPHILS % 68.2 % (40.0-76.0); PLATELET 453 x1000/uL (130-400); RED BLOOD CELL COUNT 3.06 mill/uL (4.2-5.4); RED CELL DISTRIBUTION WIDTH 15.1 % (11.6-14.6)
[2019-11-30 07:34] LABS: CHLORIDE 106 mEq/L (98-107)
[2019-11-30 08:00] VITALS: BP 125/97
[2019-11-30] MEDS: FERROUS SULFATE 300MG/5ML UDC GT SCH ×3 (10:35→18:52)
[2019-11-30] MEDS: ZINC SULFATE 220 MG ( 50 ) CAPSULE PO SCH (10:35)
[2019-11-30] MEDS: ACETAMINOPHEN 650MG/20.3ML UDC GT SCH ×2 (10:35→21:31)
[2019-11-30] MEDS: FOLIC ACID 1MG TABLET PO SCH (10:35)
[2019-11-30] MEDS: APIXABAN 2.5 MG TABLET GT SCH ×2 (10:36→21:31)
[2019-11-30] MEDS: AMOXICILLIN 500 MG CAPSULE PO SCH ×2 (10:36→21:56)
[2019-11-30] MEDS: CHOLECALCIFEROL (D3) 1000 UNIT TABLET GT SCH (10:36)
[2019-11-30 12:00] VITALS: BP 96/63
[2019-11-30] MEDS: DOCUSATE SODIUM SUGAR FREE 100MG/10ML UDC PO SCH (15:36)
[2019-11-30 16:00] VITALS: BP 127/74
[2019-11-30 20:00] VITALS: BP 135/68
[2019-11-30] MEDS: ATORVASTATIN CALCIUM 20MG TABLET PO SCH (22:02)
[2019-12-01] VITALS: BP 133/63
[2019-12-01] MEDS: SODIUM CHLORIDE 45ML SPRAY NS SCH ×4 (00:38→17:10)
[2019-12-01 04:00] VITALS: BP 100/59
[2019-12-01 08:00] VITALS: BP 115/49
[2019-12-01] MEDS: ZINC SULFATE 220 MG ( 50 ) CAPSULE PO SCH (08:28)
[2019-12-01] MEDS: FERROUS SULFATE 300MG/5ML UDC GT SCH ×3 (08:28→17:10)
[2019-12-01] MEDS: AMOXICILLIN 500 MG CAPSULE PO SCH ×2 (08:28→20:55)
[2019-12-01] MEDS: CHOLECALCIFEROL (D3) 1000 UNIT TABLET GT SCH (08:28)
[2019-12-01] MEDS: APIXABAN 2.5 MG TABLET GT SCH ×2 (08:28→20:55)
[2019-12-01] MEDS: FOLIC ACID 1MG TABLET PO SCH (08:28)
[2019-12-01] MEDS: DOCUSATE SODIUM SUGAR FREE 100MG/10ML UDC PO SCH (08:28)
[2019-12-01 12:00] VITALS: BP 103/76
[2019-12-01] MEDS: FAMOTIDINE 20MG TABLET PO SCH (12:43)
[2019-12-01] MEDS: LIDOCAINE HCL 4% CREAM 76GM TUBE TP SCH ×2 (12:44→21:01)
[2019-12-01 16:00] VITALS: BP 100/74
[2019-12-01 20:00] VITALS: BP 114/70
[2019-12-01] MEDS: ATORVASTATIN CALCIUM 20MG TABLET PO SCH (20:55)
[2019-12-02] VITALS (7 sets, daily range): BP systolic 90–157; BP diastolic 46–120
[2019-12-02] MEDS: SODIUM CHLORIDE 45ML SPRAY NS SCH ×4 (00:29→18:06)
[2019-12-02 05:19] LABS: BASOPHILS % 0.2 % (0.0-2.0); EOSINOPHILS % 6.1 % (0.0-5.0); HEMATOCRIT. 26.1 % (36.0-48.0); HEMOGLOBIN. 8.9 g/dL (12.0-16.0); LYMPHOCYTES % 23.5 % (20.0-50.0); MEAN CORPUSCULAR HEMOGLOBIN 33.7 pg (28.0-32.0); MEAN CORPUSCULAR VOLUME 99.4 fL (81.0-99.0); MONOCYTES % 11.8 % (2.0-8.0); NEUTROPHILS % 58.4 % (40.0-76.0); PLATELET 346 x1000/uL (130-400); RED BLOOD CELL COUNT 2.63 mill/uL (4.2-5.4); RED CELL DISTRIBUTION WIDTH 15.1 % (11.6-14.6)
[2019-12-02 05:33] LABS: CHLORIDE 108 mEq/L (98-107)
[2019-12-02] MEDS: FAMOTIDINE 20MG TABLET PO SCH (09:05)
[2019-12-02] MEDS: AMOXICILLIN 500 MG CAPSULE PO SCH ×2 (09:05→20:45)
[2019-12-02] MEDS: CHOLECALCIFEROL (D3) 1000 UNIT TABLET GT SCH (09:05)
[2019-12-02] MEDS: APIXABAN 2.5 MG TABLET GT SCH ×2 (09:05→20:45)
[2019-12-02] MEDS: FOLIC ACID 1MG TABLET PO SCH (09:06)
[2019-12-02] MEDS: ZINC SULFATE 220 MG ( 50 ) CAPSULE PO SCH (09:08)
[2019-12-02] MEDS: FERROUS SULFATE 300MG/5ML UDC GT SCH ×3 (09:09→18:07)
[2019-12-02] MEDS: DOCUSATE SODIUM SUGAR FREE 100MG/10ML UDC PO SCH (09:09)
[2019-12-02] MEDS: LIDOCAINE HCL 4% CREAM 76GM TUBE TP SCH ×2 (09:46→20:46)
[2019-12-02] MEDS: ATORVASTATIN CALCIUM 20MG TABLET PO SCH (20:45)
== END 2019-12-02 22:50 | DRG 871 ==
LOC: ER 12:57 → EDBEDREQSVC 17:11 → EDBEDREQ 17:11 → 7WST 19:06 → EDBEDREQSVC 19:12 → ENRESERV 22:00
PROVIDERS: ADMIT Internal Medicine Geriatric Medicine; ATTEND Internal Medicine Geriatric Medicine
DX: A41.89 Other specified sepsis (principal); U07.1 COVID-19; J96.01 Acute respiratory failure with hypoxia; N18.6 End stage renal disease; E43 Unspecified severe protein-calorie malnutrition; J12.89 Other viral pneumonia; J18.9 Pneumonia, unspecified organism; N17.9 Acute kidney failure, unspecified; J44.0 Chronic obstructive pulmonary disease with (acute) lower respiratory infection; I47.1 Supraventricular tachycardia; E87.0 Hyperosmolality and hypernatremia; I12.0 Hypertensive chronic kidney disease with stage 5 chronic kidney disease or end stage renal disease; E87.1 Hypo-osmolality and hyponatremia; J91.8 Pleural effusion in other conditions classified elsewhere; K94.23 Gastrostomy malfunction; N39.0 Urinary tract infection, site not specified; I69.351 Hemiplegia and hemiparesis following cerebral infarction affecting right dominant side; I73.9 Peripheral vascular disease, unspecified; E78.5 Hyperlipidemia, unspecified; M19.90 Unspecified osteoarthritis, unspecified site; K59.09 Other constipation; D64.9 Anemia, unspecified; F02.80 Dementia in other diseases classified elsewhere, unspecified severity, without behavioral disturbance, psychotic disturbance, mood disturbance, and anxiety; G30.9 Alzheimer's disease, unspecified; E83.52 Hypercalcemia; B95.2 Enterococcus as the cause of diseases classified elsewhere; E03.9 Hypothyroidism, unspecified; E78.00 Pure hypercholesterolemia, unspecified; E83.39 Other disorders of phosphorus metabolism; E83.51 Hypocalcemia; E86.0 Dehydration; E87.5 Hyperkalemia; G40.909 Epilepsy, unspecified, not intractable, without status epilepticus; R73.9 Hyperglycemia, unspecified; E87.6 Hypokalemia; I48.0 Paroxysmal atrial fibrillation; Z79.02 Long term (current) use of antithrombotics/antiplatelets; Z79.899 Other long term (current) drug therapy; Z91.040 Latex allergy status; Z99.2 Dependence on renal dialysis; Z88.8 Allergy status to other drugs, medicaments and biological substances; Z91.041 Radiographic dye allergy status
CPT/HCPCS: 36415; 36600; 71045; 80048; 80053; 80076; 81003; 82375; 82550; 82553; 82728; 82805; 82962; 83540; 83550; 83605; 83615; 83735; 84100; 84145; 84443; 85025; 85379; 86140; 87077; 87177; 87186; 87209; 87493; 87635; 87804; 89055; 93005; 99285; J0456; J0696; J1200; J2930; J3475; J3490; J7030; J7060; J7070

== ENCOUNTER 2020-08-31 10:12 | Inpatient (IN) | payer MEDICARE, MEDICAID ==
[~2020-08-31] VITALS: Ht 165.1 cm; Wt 67.6 kg
[~2020-08-31 10:12] MED LIST changes: +CLOP-31 PO; -CLOP75TA4 PO; +IPRA4AER INH; -PANT40TA4 PO; +PANT40TA51 PO
[2020-08-31] MEDS ORDERED: SODIUM CHLORIDE 0.9% 1,000 ML IV ONE (10:45)
[2020-08-31] MEDS ORDERED: MAGNESIUM/ALUMINUM HYDROXIDE/SIMETHICONE 30ML UDC PO PRN (11:30)
[2020-08-31] MEDS ORDERED: IPRATROPIUM/ALBUTEROL 0.5-3(2.5)MG/3ML NEB HHN PRN (11:30)
[2020-08-31] MEDS ORDERED: ONDANSETRON HCL 4MG/2ML INJ IV PRN (11:30)
[2020-08-31] MEDS ORDERED: CLONIDINE 0.1MG TABLET PO PRN (11:30)
[2020-08-31 11:41] LABS: BASOPHILS % 0.1 % (0.0-2.0); EOSINOPHILS % 0.1 % (0.0-5.0); HEMATOCRIT. 41.1 % (36.0-48.0); HEMOGLOBIN. 13.3 g/dL (12.0-16.0); MEAN CORPUSCULAR HEMOGLOBIN 33.8 pg (28.0-32.0); MEAN PLATELET VOLUME 11.3 fl (7.4-10.4); NEUTROPHILS % 83.8 % (40.0-76.0); PLATELET 175 x1000/uL (130-400); RED BLOOD CELL COUNT 3.95 mill/uL (4.2-5.4); RED CELL DISTRIBUTION WIDTH 16.1 % (11.6-14.6)
[2020-08-31 11:45] LABS: INR 1.1
[2020-08-31] MEDS ORDERED: CEFTRIAXONE 1 G PREMIX 50 ML IV ONE (11:45)
[2020-08-31 11:54] LABS: CHLORIDE 134 mEq/L (98-107)
[2020-08-31] MEDS ORDERED: ACETAMINOPHEN 650MG SUPP PR ONE (12:00)
[2020-08-31] MEDS ORDERED: LEVOFLOXACIN 500MG PREMIX 100 ML IV ONE (12:00)
[2020-08-31] MEDS ORDERED: SODIUM CHLORIDE 0.9% 1000ML BAG (SEPSIS BOLUS) IV ONE (12:00)
[2020-08-31 12:02] LABS: LDL CHOLESTEROL 77 mg/dL (5-100)
[2020-08-31 12:03] LABS: CLARITY URINE CLOUDY (CLEAR); COLOR URINE YELLOW (YELLOW); CREATINE KINASE 184 IU/L (26-192); HDL CHOLESTEROL 47 mg/dL (40-59); KETONES URINE NEGATIVE (NEGATIVE); LEUKOCYTE ESTERASE URINE 3+ (NEGATIVE); NITRITE URINE NEGATIVE (NEGATIVE); OCCULT BLOOD URINE NEGATIVE (NEGATIVE); PROTEIN URINE 2+ (NEGATIVE); SPECIFIC GRAVITY URINE 1.018 (1.005-1.030)
[2020-08-31 12:51] LABS: BG BASE EXCESS -2.2 mmol/L (-2.0-2.0); BG CARBOXYHEMOGLOBIN 0.6 % (0.5-1.5); BG DEOXYHEMOGLOBIN 2.5 % (0.0-5.0); BG FRACTION INSPIRED OXYGEN 28; BG HCO3 ACT 20.3 mmol/L (22.0-26.0); BG METHEMOGLOBIN 0.1 % (0.0-1.5); BG OXYGEN SATURATION 97.5 % (92.0-98.5); BG OXYHEMOGLOBIN 96.8 % (94.0-97.0); BG PCO2 28.7 mmHg (35.0-45.0); BG PH 7.468 (7.350-7.450); BG PO2 92.2 mmHg (75.0-100.0); BG SAMPLE SITE LEFT BRACHIAL; BG TOTAL HEMOGLOBIN 13.3 g/dL (12.0-18.0); BG VENT MODE NASAL CANNULA
[2020-08-31] MEDS ORDERED: SODIUM CHL 0.45% + KCL 20MEQ/L 1,000 ML IV SCH (14:00)
[2020-08-31] MEDS ORDERED: PIPERACILLIN/TAZ 3.375G PREMIX 50 ML IV SCH (14:00)
[2020-08-31] MEDS ORDERED: DEXT 5% WATER + KCL 20MEQ/L 1,000 ML IV SCH (16:00)
[2020-08-31 18:35] VITALS: BP 119/62
[2020-08-31] MEDS: FAMOTIDINE 20MG TABLET GT SCH (18:47)
[2020-08-31] MEDS: IPRATROPIUM/ALBUTEROL 0.5-3(2.5)MG/3ML NEB HHN SCH (18:47)
[2020-08-31] MEDS: DILTIAZEM HCL 30MG TABLET GT SCH (18:47)
[2020-08-31] MEDS: DOCUSATE SODIUM SUGAR FREE 100MG/10ML UDC NG SCH (19:01)
[2020-08-31] MEDS: APIXABAN 2.5 MG TABLET GT SCH (19:02)
[2020-08-31 20:00] VITALS: BP 109/55
[2020-08-31 21:00] VITALS: BP 109/55
[2020-08-31] MEDS: METOPROLOL TARTRATE 25MG TABLET GT SCH (22:00)
[2020-08-31] MEDS: ATORVASTATIN CALCIUM 20MG TABLET GT SCH (22:02)
[2020-08-31 22:17] VITALS: BP 108/55
[2020-08-31] MEDS: PIPERACILLIN/TAZOBACTAM 3.375 G in DEXT 5% WATER 100 ML IV SCH (22:22)
[2020-09-01] VITALS (7 sets, daily range): BP systolic 103–119; BP diastolic 45–75
[2020-09-01] MEDS: DILTIAZEM HCL 30MG TABLET GT SCH ×3 (02:08→17:43)
[2020-09-01] MEDS: IPRATROPIUM/ALBUTEROL 0.5-3(2.5)MG/3ML NEB HHN SCH ×4 (02:40→21:51)
[2020-09-01] MEDS: APIXABAN 2.5 MG TABLET GT SCH ×2 (06:44→17:43)
[2020-09-01] MEDS: PIPERACILLIN/TAZOBACTAM 3.375 G in DEXT 5% WATER 100 ML IV SCH ×3 (06:46→21:02)
[2020-09-01 07:45] LABS: BASOPHILS % 0.2 % (0.0-2.0); HEMATOCRIT. 33.2 % (36.0-48.0); HEMOGLOBIN. 11.1 g/dL (12.0-16.0); MEAN CORPUSCULAR HEMOGLOBIN 34.8 pg (28.0-32.0); MEAN CORPUSCULAR VOLUME 104.1 fL (81.0-99.0); MEAN PLATELET VOLUME 11.5 fl (7.4-10.4); NEUTROPHILS % 78.8 % (40.0-76.0); PLATELET 122 x1000/uL (130-400); RED BLOOD CELL COUNT 3.19 mill/uL (4.2-5.4); RED CELL DISTRIBUTION WIDTH 15.9 % (11.6-14.6)
[2020-09-01 08:19] LABS: CHLORIDE 138 mEq/L (98-107)
[2020-09-01] MEDS: FAMOTIDINE 20MG TABLET GT SCH (09:15)
[2020-09-01] MEDS: MULTIVITAMINS,THER W-MINERALS TABLET GT SCH (09:15)
[2020-09-01] MEDS: METOPROLOL TARTRATE 25MG TABLET GT SCH ×2 (09:15→20:52)
[2020-09-01] MEDS: FOLIC ACID/VITAMIN B COMP W-C TABLET GT SCH (09:15)
[2020-09-01] MEDS: DOCUSATE SODIUM SUGAR FREE 100MG/10ML UDC NG SCH ×2 (09:18→17:43)
[2020-09-01] MEDS: DEXTROSE 5% WATER 1,000 ML IV SCH ×2 (09:38→20:52)
[2020-09-01] MEDS: ATORVASTATIN CALCIUM 20MG TABLET GT SCH (20:52)
[2020-09-02] VITALS: BP 110/57
[2020-09-02] MEDS: DILTIAZEM HCL 30MG TABLET GT SCH ×3 (02:21→18:18)
[2020-09-02] MEDS: IPRATROPIUM/ALBUTEROL 0.5-3(2.5)MG/3ML NEB HHN SCH ×4 (03:30→21:14)
[2020-09-02 04:00] VITALS: BP 103/51
[2020-09-02] MEDS: DEXTROSE 5% WATER 1,000 ML IV SCH (05:15)
[2020-09-02] MEDS: PIPERACILLIN/TAZOBACTAM 3.375 G in DEXT 5% WATER 100 ML IV SCH ×3 (06:29→21:30)
[2020-09-02] MEDS: APIXABAN 2.5 MG TABLET GT SCH ×2 (06:29→18:18)
[2020-09-02 06:42] LABS: CHLORIDE 129 mEq/L (98-107)
[2020-09-02 06:56] LABS: BASOPHILS % 0.4 % (0.0-2.0); EOSINOPHILS % 2.9 % (0.0-5.0); HEMATOCRIT. 30.1 % (36.0-48.0); HEMOGLOBIN. 10.1 g/dL (12.0-16.0); LYMPHOCYTES % 19.9 % (20.0-50.0); MEAN CORPUSCULAR HEMOGLOBIN 34.6 pg (28.0-32.0); MEAN CORPUSCULAR VOLUME 103.3 fL (81.0-99.0); MEAN PLATELET VOLUME 11.9 fl (7.4-10.4); MONOCYTES % 5.2 % (2.0-8.0); NEUTROPHILS % 71.6 % (40.0-76.0); PLATELET 117 x1000/uL (130-400); RED BLOOD CELL COUNT 2.91 mill/uL (4.2-5.4); RED CELL DISTRIBUTION WIDTH 15.3 % (11.6-14.6)
[2020-09-02 08:00] VITALS: BP 99/59
[2020-09-02 09:12] LABS: PHOSPHORUS 2.4 mg/dL (2.5-4.9)
[2020-09-02] MEDS ORDERED: KCL 20MEQ/100ML PREMIX 100 ML IV SCH (10:00)
[2020-09-02] MEDS: DOCUSATE SODIUM SUGAR FREE 100MG/10ML UDC NG SCH ×2 (10:09→18:19)
[2020-09-02] MEDS: MULTIVITAMINS,THER W-MINERALS TABLET GT SCH (10:09)
[2020-09-02] MEDS: FAMOTIDINE 20MG TABLET GT SCH (10:09)
[2020-09-02] MEDS: FOLIC ACID/VITAMIN B COMP W-C TABLET GT SCH (10:09)
[2020-09-02] MEDS: METOPROLOL TARTRATE 25MG TABLET GT SCH ×2 (10:13→21:00)
[2020-09-02 12:00] VITALS: BP 113/56
[2020-09-02] MEDS: DEXT 5% WATER + KCL 20MEQ/L 1,000 ML IV SCH ×2 (13:44→20:00)
[2020-09-02 16:00] VITALS: BP 138/60
[2020-09-02 20:00] VITALS: BP 109/48
[2020-09-02] MEDS: ATORVASTATIN CALCIUM 20MG TABLET GT SCH (21:31)
[2020-09-03] VITALS: BP 114/52
[2020-09-03] MEDS: DILTIAZEM HCL 30MG TABLET GT SCH ×3 (02:00→18:44)
[2020-09-03] MEDS: DEXT 5% WATER + KCL 20MEQ/L 1,000 ML IV SCH ×2 (03:13→16:52)
[2020-09-03 04:00] VITALS: BP 110/75
[2020-09-03] MEDS: APIXABAN 2.5 MG TABLET GT SCH ×2 (05:17→18:44)
[2020-09-03] MEDS: PIPERACILLIN/TAZOBACTAM 3.375 G in DEXT 5% WATER 100 ML IV SCH ×3 (05:17→21:49)
[2020-09-03 08:00] VITALS: BP 112/66
[2020-09-03] MEDS ORDERED: FLUCONAZOLE/NS(NEO) 2MG/ML IVPB IV SCH (08:30)
[2020-09-03] MEDS ORDERED: MAGNESIUM 2 G PREMIX 50 ML IV PRN (08:30)
[2020-09-03] MEDS ORDERED: POTASSIUM CHLORIDE 20MEQ/PACKET GT SCH (09:00)
[2020-09-03] MEDS: IPRATROPIUM/ALBUTEROL 0.5-3(2.5)MG/3ML NEB HHN SCH (09:32)
[2020-09-03] MEDS: FOLIC ACID/VITAMIN B COMP W-C TABLET GT SCH (10:28)
[2020-09-03] MEDS: DOCUSATE SODIUM SUGAR FREE 100MG/10ML UDC NG SCH ×2 (10:29→17:36)
[2020-09-03] MEDS: MULTIVITAMINS,THER W-MINERALS TABLET GT SCH (10:29)
[2020-09-03] MEDS: FAMOTIDINE 20MG TABLET GT SCH (10:29)
[2020-09-03] MEDS: METOPROLOL TARTRATE 25MG TABLET GT SCH ×2 (10:30→21:49)
[2020-09-03 12:00] VITALS: BP 111/52
[2020-09-03] MEDS: FLUCONAZOLE 100MG/50ML in BAG IV SCH (13:03)
[2020-09-03 15:40] LABS: BASOPHILS % 0.3 % (0.0-2.0); EOSINOPHILS % 4.4 % (0.0-5.0); HEMATOCRIT. 26.8 % (36.0-48.0); HEMOGLOBIN. 8.9 g/dL (12.0-16.0); LYMPHOCYTES % 11.6 % (20.0-50.0); MEAN CORPUSCULAR VOLUME 101.8 fL (81.0-99.0); MONOCYTES % 5.4 % (2.0-8.0); NEUTROPHILS % 78.3 % (40.0-76.0); RED BLOOD CELL COUNT 2.63 mill/uL (4.2-5.4); RED CELL DISTRIBUTION WIDTH 15.2 % (11.6-14.6)
[2020-09-03 15:44] LABS: CHLORIDE 123 mEq/L (98-107)
[2020-09-03 16:00] VITALS: BP 110/82
[2020-09-03 16:30] LABS: PLATELET 102 x1000/uL (130-400)
[2020-09-03] MEDS: POTASSIUM-SODIUM PHOSPHATE POWDER PACKET GT SCH (17:37)
[2020-09-03] MEDS: ACETAMINOPHEN 650MG/20.3ML UDC GT PRN (18:00)
[2020-09-03 20:00] VITALS: BP 115/57
[2020-09-03] MEDS: ATORVASTATIN CALCIUM 20MG TABLET GT SCH (21:48)
[2020-09-04] VITALS (7 sets, daily range): BP systolic 103–161; BP diastolic 41–84
[2020-09-04] MEDS: DILTIAZEM HCL 30MG TABLET GT SCH ×3 (03:18→17:56)
[2020-09-04] MEDS: DEXT 5% WATER + KCL 20MEQ/L 1,000 ML IV SCH (03:18)
[2020-09-04] MEDS: ACETAMINOPHEN 650MG/20.3ML UDC GT PRN ×2 (03:25→23:46)
[2020-09-04] MEDS: APIXABAN 2.5 MG TABLET GT SCH ×2 (05:35→17:56)
[2020-09-04] MEDS: PIPERACILLIN/TAZOBACTAM 3.375 G in DEXT 5% WATER 100 ML IV SCH ×3 (05:35→20:38)
[2020-09-04 06:24] LABS: CHLORIDE 118 mEq/L (98-107)
[2020-09-04] MEDS ORDERED: BLOOD SUGAR DIAGNOSTIC STRIP TEST SCH (07:59)
[2020-09-04] MEDS ORDERED: INSULIN LISPRO 100 UNITS/ML SUBCUT SCH (08:00)
[2020-09-04] MEDS ORDERED: DEXTROSE 50% WATER 50ML SYRINGE IV PRN (08:00)
[2020-09-04] MEDS: DOCUSATE SODIUM SUGAR FREE 100MG/10ML UDC NG SCH ×2 (09:00→17:00)
[2020-09-04] MEDS: FAMOTIDINE 20MG TABLET GT SCH (09:58)
[2020-09-04] MEDS: LACTOBACILLUS GG CAPSULE PO SCH (09:59)
[2020-09-04] MEDS: POTASSIUM-SODIUM PHOSPHATE POWDER PACKET GT SCH ×2 (09:59→17:57)
[2020-09-04] MEDS: METOPROLOL TARTRATE 25MG TABLET GT SCH ×2 (09:59→20:37)
[2020-09-04] MEDS: MULTIVITAMINS,THER W-MINERALS TABLET GT SCH (09:59)
[2020-09-04] MEDS: FOLIC ACID/VITAMIN B COMP W-C TABLET GT SCH (09:59)
[2020-09-04] MEDS: IPRATROPIUM/ALBUTEROL 0.5-3(2.5)MG/3ML NEB HHN SCH ×4 (10:36→21:59)
[2020-09-04] MEDS: FLUCONAZOLE 100MG/50ML in BAG IV SCH (11:01)
[2020-09-04] MEDS: INSULIN LISPRO 100 UNITS/ML SUBCUT SCH ×2 (12:00→18:00)
[2020-09-04] MEDS: DEXTROSE 5% WATER 1,000 ML IV SCH ×2 (12:03→20:39)
[2020-09-04] MEDS: BLOOD SUGAR DIAGNOSTIC STRIP TEST SCH ×2 (12:44→18:20)
[2020-09-04 15:56] LABS: BASOPHILS % 0.2 % (0.0-2.0); EOSINOPHILS % 3.4 % (0.0-5.0); HEMATOCRIT. 30.1 % (36.0-48.0); HEMOGLOBIN. 9.9 g/dL (12.0-16.0); MEAN CORPUSCULAR HEMOGLOBIN 33.8 pg (28.0-32.0); MEAN CORPUSCULAR VOLUME 102.9 fL (81.0-99.0); MEAN PLATELET VOLUME 11.7 fl (7.4-10.4); MONOCYTES % 4.6 % (2.0-8.0); NEUTROPHILS % 82.8 % (40.0-76.0); PLATELET 120 x1000/uL (130-400); RED BLOOD CELL COUNT 2.92 mill/uL (4.2-5.4); RED CELL DISTRIBUTION WIDTH 15.5 % (11.6-14.6)
[2020-09-04] MEDS: ATORVASTATIN CALCIUM 20MG TABLET GT SCH (20:37)
[2020-09-05] VITALS: BP 107/56
[2020-09-05] MEDS: BLOOD SUGAR DIAGNOSTIC STRIP TEST SCH ×4 (00:15→17:31)
[2020-09-05] MEDS: DILTIAZEM HCL 30MG TABLET GT SCH ×2 (01:11→09:03)
[2020-09-05] MEDS: IPRATROPIUM/ALBUTEROL 0.5-3(2.5)MG/3ML NEB HHN SCH (01:51)
[2020-09-05 04:00] VITALS: BP 135/81
[2020-09-05] MEDS: INSULIN LISPRO 100 UNITS/ML SUBCUT SCH ×4 (05:15→17:31)
[2020-09-05] MEDS: APIXABAN 2.5 MG TABLET GT SCH ×2 (05:39→17:37)
[2020-09-05] MEDS: PIPERACILLIN/TAZOBACTAM 3.375 G in DEXT 5% WATER 100 ML IV SCH (05:39)
[2020-09-05] MEDS: DOCUSATE SODIUM SUGAR FREE 100MG/10ML UDC NG SCH ×2 (09:01→17:37)
[2020-09-05] MEDS: MULTIVITAMINS,THER W-MINERALS TABLET GT SCH (09:01)
[2020-09-05] MEDS: METOPROLOL TARTRATE 25MG TABLET GT SCH ×2 (09:02→21:56)
[2020-09-05] MEDS: FAMOTIDINE 20MG TABLET GT SCH (09:03)
[2020-09-05] MEDS: POTASSIUM-SODIUM PHOSPHATE POWDER PACKET GT SCH (09:03)
[2020-09-05] MEDS: LACTOBACILLUS GG CAPSULE PO SCH (09:03)
[2020-09-05] MEDS: FOLIC ACID/VITAMIN B COMP W-C TABLET GT SCH (09:03)
[2020-09-05 09:08] VITALS: BP 137/54
[2020-09-05 09:54] LABS: BASOPHILS % 0.2 % (0.0-2.0); EOSINOPHILS % 3.5 % (0.0-5.0); HEMOGLOBIN. 10.1 g/dL (12.0-16.0); LYMPHOCYTES % 11.7 % (20.0-50.0); MEAN CORPUSCULAR HEMOGLOBIN 33.2 pg (28.0-32.0); MEAN CORPUSCULAR VOLUME 101.7 fL (81.0-99.0); MEAN PLATELET VOLUME 10.7 fl (7.4-10.4); MONOCYTES % 5.3 % (2.0-8.0); NEUTROPHILS % 79.3 % (40.0-76.0); PLATELET 136 x1000/uL (130-400); RED BLOOD CELL COUNT 3.05 mill/uL (4.2-5.4); RED CELL DISTRIBUTION WIDTH 15.5 % (11.6-14.6)
[2020-09-05] MEDS: FLUCONAZOLE 100MG/50ML in BAG IV SCH (10:04)
[2020-09-05 10:06] LABS: CHLORIDE 114 mEq/L (98-107)
[2020-09-05 12:00] VITALS: BP 149/59
[2020-09-05] MEDS: METRONIDAZOLE 500 MG PREMIX 100 ML IV SCH ×2 (12:00→17:39)
[2020-09-05] MEDS: CEFTRIAXONE 1,000 MG in DEXTROSE 5% WATER 50 ML IV SCH (12:01)
[2020-09-05 16:00] VITALS: BP 154/75
[2020-09-05 20:00] VITALS: BP 146/78
[2020-09-05] MEDS: ATORVASTATIN CALCIUM 20MG TABLET GT SCH (21:56)
[2020-09-06] VITALS: BP 150/69
[2020-09-06] MEDS: INSULIN LISPRO 100 UNITS/ML SUBCUT SCH ×4 (00:01→18:00)
[2020-09-06] MEDS: BLOOD SUGAR DIAGNOSTIC STRIP TEST SCH ×4 (00:01→18:15)
[2020-09-06 04:00] VITALS: BP 149/78
[2020-09-06] MEDS: METRONIDAZOLE 500 MG PREMIX 100 ML IV SCH ×3 (04:47→18:38)
[2020-09-06] MEDS: APIXABAN 2.5 MG TABLET GT SCH ×2 (05:43→18:38)
[2020-09-06 07:13] LABS: BASOPHILS % 0.3 % (0.0-2.0); EOSINOPHILS % 2.7 % (0.0-5.0); HEMOGLOBIN. 9.1 g/dL (12.0-16.0); LYMPHOCYTES % 15.5 % (20.0-50.0); MEAN CORPUSCULAR HEMOGLOBIN 33.3 pg (28.0-32.0); MEAN CORPUSCULAR VOLUME 102.1 fL (81.0-99.0); MEAN PLATELET VOLUME 11.3 fl (7.4-10.4); MONOCYTES % 5.9 % (2.0-8.0); NEUTROPHILS % 75.6 % (40.0-76.0); PLATELET 149 x1000/uL (130-400); RED BLOOD CELL COUNT 2.74 mill/uL (4.2-5.4); RED CELL DISTRIBUTION WIDTH 15.1 % (11.6-14.6)
[2020-09-06 07:31] LABS: CHLORIDE 118 mEq/L (98-107)
[2020-09-06 08:00] VITALS: BP 124/69
[2020-09-06] MEDS: DOCUSATE SODIUM SUGAR FREE 100MG/10ML UDC NG SCH ×2 (08:38→17:00)
[2020-09-06] MEDS: IPRATROPIUM/ALBUTEROL 0.5-3(2.5)MG/3ML NEB HHN SCH ×3 (08:58→22:20)
[2020-09-06] MEDS: MULTIVITAMINS,THER W-MINERALS TABLET GT SCH (09:47)
[2020-09-06] MEDS: LACTOBACILLUS GG CAPSULE PO SCH (09:47)
[2020-09-06] MEDS: FOLIC ACID/VITAMIN B COMP W-C TABLET GT SCH (09:48)
[2020-09-06] MEDS: METOPROLOL TARTRATE 25MG TABLET GT SCH ×2 (09:48→21:51)
[2020-09-06] MEDS: FAMOTIDINE 20MG TABLET GT SCH (09:48)
[2020-09-06] MEDS: FLUCONAZOLE 100MG/50ML in BAG IV SCH (10:08)
[2020-09-06] MEDS: CEFTRIAXONE 1,000 MG in DEXTROSE 5% WATER 50 ML IV SCH (11:50)
[2020-09-06] MEDS: DEXT 5% WATER + KCL 20MEQ/L 1,000 ML IV SCH (11:50)
[2020-09-06 12:00] VITALS: BP 141/54
[2020-09-06 16:00] VITALS: BP 136/64
[2020-09-06 18:25] LABS: PHOSPHORUS 2.7 mg/dL (2.5-4.9)
[2020-09-06 20:00] VITALS: BP 129/51
[2020-09-06] MEDS: ATORVASTATIN CALCIUM 20MG TABLET GT SCH (21:50)
[2020-09-07] VITALS: BP 130/70
[2020-09-07] MEDS: BLOOD SUGAR DIAGNOSTIC STRIP TEST SCH ×3 (00:52→12:48)
[2020-09-07] MEDS: METRONIDAZOLE 500 MG PREMIX 100 ML IV SCH ×2 (02:27→12:48)
[2020-09-07] MEDS: DEXT 5% WATER + KCL 20MEQ/L 1,000 ML IV SCH (02:28)
[2020-09-07 04:00] VITALS: BP 126/58
[2020-09-07] MEDS: IPRATROPIUM/ALBUTEROL 0.5-3(2.5)MG/3ML NEB HHN SCH ×3 (04:02→15:13)
[2020-09-07] MEDS: INSULIN LISPRO 100 UNITS/ML SUBCUT SCH ×3 (06:00→12:00)
[2020-09-07] MEDS: APIXABAN 2.5 MG TABLET GT SCH (06:38)
[2020-09-07 07:44] LABS: BASOPHILS % 0.5 % (0.0-2.0); EOSINOPHILS % 2.8 % (0.0-5.0); HEMATOCRIT. 25.8 % (36.0-48.0); HEMOGLOBIN. 8.5 g/dL (12.0-16.0); LYMPHOCYTES % 17.6 % (20.0-50.0); MEAN CORPUSCULAR HEMOGLOBIN 33.7 pg (28.0-32.0); MEAN CORPUSCULAR VOLUME 102.1 fL (81.0-99.0); MEAN PLATELET VOLUME 10.7 fl (7.4-10.4); MONOCYTES % 6.7 % (2.0-8.0); NEUTROPHILS % 72.4 % (40.0-76.0); PLATELET 182 x1000/uL (130-400); RED BLOOD CELL COUNT 2.52 mill/uL (4.2-5.4); RED CELL DISTRIBUTION WIDTH 15.1 % (11.6-14.6)
[2020-09-07 07:54] LABS: CHLORIDE 117 mEq/L (98-107)
[2020-09-07 08:00] VITALS: BP 108/53
[2020-09-07] MEDS: METOPROLOL TARTRATE 25MG TABLET GT SCH (09:00)
[2020-09-07] MEDS: FAMOTIDINE 20MG TABLET GT SCH (09:01)
[2020-09-07] MEDS: MULTIVITAMINS,THER W-MINERALS TABLET GT SCH (09:01)
[2020-09-07] MEDS: DOCUSATE SODIUM SUGAR FREE 100MG/10ML UDC NG SCH (09:02)
[2020-09-07] MEDS: FOLIC ACID/VITAMIN B COMP W-C TABLET GT SCH (09:02)
[2020-09-07] MEDS: LACTOBACILLUS GG CAPSULE PO SCH (09:02)
[2020-09-07] MEDS: FLUCONAZOLE 100MG/50ML in BAG IV SCH (09:02)
[2020-09-07] MEDS: CEFTRIAXONE 1,000 MG in DEXTROSE 5% WATER 50 ML IV SCH (11:10)
[2020-09-07 12:00] VITALS: BP 138/56
[2020-09-07 14:54] VITALS: BP 138/56
== END 2020-09-07 16:10 | DRG 871 ==
LOC: ER 10:32 → 8WST 12:29 → EDBEDREQ 12:35
PROVIDERS: ADMIT Internal Medicine Geriatric Medicine; ATTEND Internal Medicine Geriatric Medicine
DX: A41.9 Sepsis, unspecified organism (principal); G92 Toxic encephalopathy; E46 Unspecified protein-calorie malnutrition; E87.0 Hyperosmolality and hypernatremia; E87.1 Hypo-osmolality and hyponatremia; E87.2 Acidosis; N39.0 Urinary tract infection, site not specified; I47.1 Supraventricular tachycardia; L10.9 Pemphigus, unspecified; B49 Unspecified mycosis; R06.03 Acute respiratory distress; D64.9 Anemia, unspecified; E11.51 Type 2 diabetes mellitus with diabetic peripheral angiopathy without gangrene; E78.00 Pure hypercholesterolemia, unspecified; E78.5 Hyperlipidemia, unspecified; E86.0 Dehydration; E87.6 Hypokalemia; F02.80 Dementia in other diseases classified elsewhere, unspecified severity, without behavioral disturbance, psychotic disturbance, mood disturbance, and anxiety; G30.9 Alzheimer's disease, unspecified; I11.9 Hypertensive heart disease without heart failure; R13.10 Dysphagia, unspecified; L89.890 Pressure ulcer of other site, unstageable; Z86.16 Personal history of COVID-19; Z20.822 Contact with and (suspected) exposure to COVID-19; E83.39 Other disorders of phosphorus metabolism; Z86.73 Personal history of transient ischemic attack (TIA), and cerebral infarction without residual deficits; Z87.01 Personal history of pneumonia (recurrent); Z93.1 Gastrostomy status; Z88.8 Allergy status to other drugs, medicaments and biological substances; Z91.041 Radiographic dye allergy status; Z79.899 Other long term (current) drug therapy; Z79.1 Long term (current) use of non-steroidal anti-inflammatories (NSAID); Z68.24 Body mass index [BMI] 24.0-24.9, adult; Z79.01 Long term (current) use of anticoagulants; R19.7 Diarrhea, unspecified; R62.7 Adult failure to thrive; E11.65 Type 2 diabetes mellitus with hyperglycemia; S70.322A Blister (nonthermal), left thigh, initial encounter
CPT/HCPCS: 36415; 36600; 71045; 80048; 80053; 80061; 81003; 82375; 82550; 82805; 82962; 83036; 83540; 83550; 83605; 83735; 83880; 84100; 84145; 84295; 84443; 84484; 85025; 87106; 93005; 93306; 93970; 94003; 94640; 96365; 99291; J0696; J1450; J1956; J2543; J3480; J3490; J7030; J7040; J7060; J7070; U0003; A4315

== ENCOUNTER 2020-09-15 20:52 | Inpatient (IN) | payer MEDICARE, MEDICAID ==
[~2020-09-15] VITALS: Ht 157.5 cm; Wt 70.8 kg
[2020-09-15] MEDS ORDERED: PROPOFOL 10MG/ML 100ML 100 ML IV STA (22:14)
[2020-09-15] MEDS ORDERED: CLONIDINE 0.1MG TABLET PO PRN (22:15)
[2020-09-15] MEDS ORDERED: PIPERACILLIN/TAZ 3.375G PREMIX 50 ML IV ONE (22:15)
[2020-09-15] MEDS ORDERED: VANCOMYCIN 1 G PREMIX 200 ML IV ONE (22:15)
[2020-09-15] MEDS ORDERED: MAGNESIUM/ALUMINUM HYDROXIDE/SIMETHICONE 30ML UDC PO PRN (22:15)
[2020-09-15] MEDS: SODIUM CHLORIDE 0.9% 1,000 ML IV SCH (22:15)
[2020-09-15] MEDS ORDERED: ONDANSETRON HCL 4MG/2ML INJ IV PRN (22:15)
[2020-09-15] MEDS ORDERED: DEXAMETHASONE 10 MG/ML VIAL IV ONE (22:30)
[2020-09-15] MEDS ORDERED: VECURONIUM BROMIDE 10 MG/VIAL IV ONE (22:45)
[2020-09-15] MEDS ORDERED: ETOMIDATE 2MG/ML 10ML VIAL IV ONE (22:45)
[2020-09-15] MEDS ORDERED: SODIUM CHLORIDE 0.9% 10ML VIAL ONE (22:45)
[2020-09-15] MEDS ORDERED: NOREPINEPHRINE 8 MG in DEXT 5% WATER 242 ML IV STA (23:05)
[2020-09-15] MEDS ORDERED: SODIUM CHLORIDE 0.9% 1,000 ML IV ONE (23:15)
[2020-09-15 23:34] LABS: BASOPHILS % 0.3 % (0.0-2.0); EOSINOPHILS % 0.1 % (0.0-5.0); LYMPHOCYTES % 10.4 % (20.0-50.0); MEAN CORPUSCULAR HEMOGLOBIN 32.7 pg (28.0-32.0); MEAN CORPUSCULAR VOLUME 106.4 fL (81.0-99.0); MEAN PLATELET VOLUME 10.1 fl (7.4-10.4); MONOCYTES % 3.1 % (2.0-8.0); NEUTROPHILS % 86.1 % (40.0-76.0); PLATELET 367 x1000/uL (130-400); RED BLOOD CELL COUNT 1.75 mill/uL (4.2-5.4); RED CELL DISTRIBUTION WIDTH 17.3 % (11.6-14.6)
[2020-09-15 23:43] LABS: HEMATOCRIT. 18.6 % (36.0-48.0); HEMOGLOBIN. 5.7 g/dL (12.0-16.0)
[2020-09-15 23:44] LABS: INR 1.4; PARTIAL THROMBOPLASTIN TIME 28.8 sec (23.4-31.0); PROTHROMBIN TIME 14.5 sec (9.6-11.0)
[2020-09-15 23:52] LABS: CHLORIDE 127 mEq/L (98-107)
[2020-09-16 00:06] LABS: BG BASE EXCESS -4.3 mmol/L (-2.0-2.0); BG CARBOXYHEMOGLOBIN 0.3 % (0.5-1.5); BG DEOXYHEMOGLOBIN 1.3 % (0.0-5.0); BG FRACTION INSPIRED OXYGEN 100; BG HCO3 ACT 23.7 mmol/L (22.0-26.0); BG METHEMOGLOBIN 0.3 % (0.0-1.5); BG OXYGEN SATURATION 98.7 % (92.0-98.5); BG OXYHEMOGLOBIN 98.1 % (94.0-97.0); BG PH 7.222 (7.350-7.450); BG PO2 179.4 mmHg (75.0-100.0); BG TOTAL HEMOGLOBIN 9.7 g/dL (12.0-18.0); BG VENT MODE VENT - AC
[2020-09-16 00:18] LABS: BG TOTAL RESPIRATORY RATE 16 b/min; BG VENT RATE 16 set
[2020-09-16] MEDS ORDERED: NOREPINEPHRINE 8 MG in DEXT 5% WATER 242 ML IV PRN (01:15)
[2020-09-16] MEDS ORDERED: PHENYLEPHRINE 100 MG in DEXT 5% WATER 240 ML IV STA (03:16)
[2020-09-16] MEDS ORDERED: PHENYLEPHRINE 100 MG in DEXT 5% WATER 240 ML IV PRN (03:30)
[2020-09-16] MEDS ORDERED: MIDAZOLAM HCL 100 MG in DEXT 5% WATER 80 ML IV ONE (03:30)
[2020-09-16 03:49] LABS: CHLORIDE 127 mEq/L (98-107)
[2020-09-16 03:56] LABS: CLARITY URINE TURBID (CLEAR); COLOR URINE DARK YELLOW (YELLOW); KETONES URINE NEGATIVE (NEGATIVE); LEUKOCYTE ESTERASE URINE 3+ (NEGATIVE); NITRITE URINE NEGATIVE (NEGATIVE); OCCULT BLOOD URINE TRACE (NEGATIVE); PROTEIN URINE 2+ (NEGATIVE); SPECIFIC GRAVITY URINE 1.018 (1.005-1.030); UROBILINOGEN URINE 0.2 E.U./dL (0.2-1.0)
[2020-09-16 05:30] LABS: HEMATOCRIT. 25.6 % (36.0-48.0); MEAN CORPUSCULAR HEMOGLOBIN 33.6 pg (28.0-32.0); MEAN CORPUSCULAR VOLUME 104.6 fL (81.0-99.0); MEAN PLATELET VOLUME 9.2 fl (7.4-10.4); PLATELET 336 x1000/uL (130-400); RED BLOOD CELL COUNT 2.44 mill/uL (4.2-5.4); RED CELL DISTRIBUTION WIDTH 16.9 % (11.6-14.6)
[2020-09-16 05:33] LABS: HEMOGLOBIN. 8.2 g/dL (12.0-16.0)
[2020-09-16 06:02] LABS: NUCLEATED RED BLOOD CELLS 11 /100 WBC; PLATELET ESTIMATE NORMAL
[2020-09-16] MEDS: PIPERACILLIN/TAZ 3.375G PREMIX 50 ML IV SCH ×2 (07:00→16:56)
[2020-09-16] MEDS: MIDAZOLAM HCL 100 MG in DEXT 5% WATER 80 ML IV PRN ×2 (08:03→16:54)
[2020-09-16] MEDS ORDERED: VANCOMYCIN 1 G PREMIX 200 ML IV NR (09:00)
[2020-09-16] MEDS: ACETAMINOPHEN 650MG/20.3ML UDC GT PRN (09:50)
[2020-09-16] MEDS ORDERED: POTASSIUM CHLORIDE 20MEQ/PACKET PO SCH (12:00)
[2020-09-16] MEDS: SODIUM CHLORIDE 0.9% 1,000 ML IV SCH ×2 (12:09→19:37)
[2020-09-16] MEDS: PANTOPRAZOLE SODIUM 40 MG/VIAL IV SCH (12:15)
[2020-09-16] MEDS ORDERED: NOREPINEPHRINE 32 MG in DEXT 5% WATER 218 ML IV PRN ×2 (13:30→13:45)
[2020-09-16 15:02] LABS: BG BASE EXCESS -8.9 mmol/L (-2.0-2.0); BG CARBOXYHEMOGLOBIN 0.3 % (0.5-1.5); BG DEOXYHEMOGLOBIN 3.4 % (0.0-5.0); BG HCO3 ACT 16.8 mmol/L (22.0-26.0); BG METHEMOGLOBIN 0.3 % (0.0-1.5); BG OXYGEN SATURATION 96.6 % (92.0-98.5); BG PCO2 35.8 mmHg (35.0-45.0); BG SAMPLE SITE RIGHT BRACHIAL; BG TOTAL HEMOGLOBIN 9.2 g/dL (12.0-18.0); BG VENT MODE VENT - AC
[2020-09-16] MEDS ORDERED: MEROPENEM XX SCH (15:15)
[2020-09-16] MEDS ORDERED: VANCOMYCIN XX SCH (15:15)
[2020-09-16] MEDS: MEROPENEM 1000MG in NORMAL SALINE 100ML IV SCH (18:58)
[2020-09-16] MEDS ORDERED: ENOXAPARIN 30MG/0.3ML SYR SUBCUT SCH (21:00)
[2020-09-17] VITALS (63 sets, daily range): BP systolic 87–133; BP diastolic 32–89
[2020-09-17] MEDS: PIPERACILLIN/TAZ 3.375G PREMIX 50 ML IV SCH ×2 (01:07→08:46)
[2020-09-17] MEDS ORDERED: MEROPENEM 1000MG in NORMAL SALINE 100ML IV SCH (01:30)
[2020-09-17] MEDS: SODIUM CHLORIDE 0.9% 1,000 ML IV SCH (03:37)
[2020-09-17 05:26] LABS: HEMATOCRIT. 25.4 % (36.0-48.0); MEAN CORPUSCULAR HEMOGLOBIN 32.4 pg (28.0-32.0); MEAN CORPUSCULAR VOLUME 103.4 fL (81.0-99.0); PLATELET 290 x1000/uL (130-400); RED BLOOD CELL COUNT 2.46 mill/uL (4.2-5.4); RED CELL DISTRIBUTION WIDTH 16.9 % (11.6-14.6)
[2020-09-17 05:38] LABS: PHOSPHORUS 5.6 mg/dL (2.5-4.9)
[2020-09-17] MEDS ORDERED: SODIUM CHLORIDE 0.9% 500 ML IV ONE (07:30)
[2020-09-17] MEDS ORDERED: DILTIAZEM HCL 5MG/ML 5ML VIAL IV ONE (08:30)
[2020-09-17] MEDS: PANTOPRAZOLE SODIUM 40 MG/VIAL IV SCH (08:46)
[2020-09-17] MEDS ORDERED: VANCOMYCIN 750 MG PREMIX 150 ML IV NR (10:00)
[2020-09-17 11:53] LABS: BG BASE EXCESS -8.8 mmol/L (-2.0-2.0); BG CARBOXYHEMOGLOBIN 0.3 % (0.5-1.5); BG DEOXYHEMOGLOBIN 4.4 % (0.0-5.0); BG FRACTION INSPIRED OXYGEN 70; BG HCO3 ACT 17.2 mmol/L (22.0-26.0); BG METHEMOGLOBIN 0.1 % (0.0-1.5); BG OXYGEN SATURATION 95.6 % (92.0-98.5); BG OXYHEMOGLOBIN 95.2 % (94.0-97.0); BG PCO2 37.1 mmHg (35.0-45.0); BG PH 7.283 (7.350-7.450); BG PO2 87.5 mmHg (75.0-100.0); BG SAMPLE SITE RIGHT RADIAL; BG TOTAL HEMOGLOBIN 9.4 g/dL (12.0-18.0); BG VENT MODE VENT - AC
[2020-09-17] MEDS ORDERED: NOREPINEPHRINE 8MG/250ML PMX 250 ML IV PRN (11:56)
[2020-09-17] MEDS ORDERED: FENTANYL CITRATE/PF 2,500 MCG in SODIUM CHLORIDE 0.9% 200 ML IV PRN (12:00)
[2020-09-17 12:02] LABS: PLATELET ESTIMATE NORMAL
[2020-09-17] MEDS ORDERED: DEXTROSE 50% WATER 50ML SYRINGE IV PRN (12:45)
[2020-09-17] MEDS: BLOOD SUGAR DIAGNOSTIC STRIP TEST SCH ×3 (12:50→21:32)
[2020-09-17] MEDS: MEROPENEM 1000MG in NORMAL SALINE 100ML IV SCH (13:19)
[2020-09-17] MEDS: SODIUM BICARBONATE IV SCH ×2 (13:39→14:07)
[2020-09-17] MEDS: DEXT IV SCH ×2 (13:39→14:07)
[2020-09-17] MEDS: NACL KCL IV SCH ×2 (13:39→14:07)
[2020-09-17] MEDS: LACTULOSE 20G/30ML UDC GT NR ×2 (13:41→14:09)
[2020-09-17] MEDS: CITRIC ACID/SODIUM CITRATE SOLN 30ML UDC PO SCH ×3 (13:41→16:42)
[2020-09-17] MEDS: LACTOBACILLUS GG CAPSULE GT SCH (13:41)
[2020-09-17] MEDS: PHENYLEPHRINE 100 MG in DEXT 5% WATER 240 ML IV PRN ×2 (13:50→23:32)
[2020-09-17] MEDS: NOREPINEPHRINE 8 MG in DEXTROSE 5% WATER 250 ML IV PRN ×2 (13:52→23:04)
[2020-09-17] MEDS ORDERED: METRONIDAZOLE 500 MG PREMIX 100 ML IV SCH (14:00)
[2020-09-17] MEDS: INSULIN LISPRO 100 UNITS/ML SUBCUT SCH ×3 (14:22→21:32)
[2020-09-17] MEDS: FLUCONAZOLE 100MG TABLET PO SCH (16:42)
[2020-09-17 16:43] LABS: HEPATITIS B SURFACE ANTIGEN NEGATIVE
[2020-09-17 17:13] LABS: HEPATITIS A AB IGM NEGATIVE (NEGATIVE)
[2020-09-18] VITALS (123 sets, daily range): BP systolic 82–139; BP diastolic 40–85
[2020-09-18] MEDS: SODIUM BICARBONATE IV SCH ×3 (00:30→21:53)
[2020-09-18] MEDS: DEXT IV SCH (00:30)
[2020-09-18] MEDS: NACL KCL IV SCH (00:30)
[2020-09-18] MEDS: MEROPENEM 1000MG in NORMAL SALINE 100ML IV SCH ×2 (01:15→13:05)
[2020-09-18] MEDS: IPRATROPIUM/ALBUTEROL 0.5-3(2.5)MG/3ML NEB HHN SCH ×5 (01:24→20:14)
[2020-09-18 06:35] LABS: MEAN CORPUSCULAR HEMOGLOBIN 31.6 pg (28.0-32.0); MEAN CORPUSCULAR VOLUME 102.2 fL (81.0-99.0); MEAN PLATELET VOLUME 10.3 fl (7.4-10.4); PLATELET 218 x1000/uL (130-400); RED BLOOD CELL COUNT 2.04 mill/uL (4.2-5.4); RED CELL DISTRIBUTION WIDTH 16.9 % (11.6-14.6)
[2020-09-18 06:58] LABS: HEMOGLOBIN. 6.4 g/dL (12.0-16.0)
[2020-09-18 07:00] LABS: HEMATOCRIT. 20.8 % (36.0-48.0)
[2020-09-18 07:20] LABS: BG BASE EXCESS -6.4 mmol/L (-2.0-2.0); BG CARBOXYHEMOGLOBIN 0.3 % (0.5-1.5); BG DEOXYHEMOGLOBIN 1.2 % (0.0-5.0); BG FRACTION INSPIRED OXYGEN 70; BG HCO3 ACT 18.4 mmol/L (22.0-26.0); BG METHEMOGLOBIN 0.5 % (0.0-1.5); BG OXYGEN SATURATION 98.8 % (92.0-98.5); BG PCO2 33.4 mmHg (35.0-45.0); BG PH 7.359 (7.350-7.450); BG PO2 145.2 mmHg (75.0-100.0); BG SAMPLE SITE RIGHT RADIAL; BG TOTAL HEMOGLOBIN 7.5 g/dL (12.0-18.0); BG VENT MODE VENT - AC/VC
[2020-09-18] MEDS: NOREPINEPHRINE 8 MG in DEXTROSE 5% WATER 250 ML IV PRN (07:49)
[2020-09-18] MEDS: BLOOD SUGAR DIAGNOSTIC STRIP TEST SCH ×4 (07:54→20:21)
[2020-09-18] MEDS: PANTOPRAZOLE SODIUM 40 MG/VIAL IV SCH ×2 (08:06→17:03)
[2020-09-18] MEDS: LACTOBACILLUS GG CAPSULE GT SCH (08:06)
[2020-09-18] MEDS: FLUCONAZOLE 100MG TABLET PO SCH (08:06)
[2020-09-18] MEDS: CITRIC ACID/SODIUM CITRATE SOLN 30ML UDC PO SCH ×3 (08:07→17:04)
[2020-09-18] MEDS: INSULIN LISPRO 100 UNITS/ML SUBCUT SCH ×4 (08:12→21:54)
[2020-09-18 08:25] LABS: PLATELET ESTIMATE NORMAL
[2020-09-18] MEDS: PHENYLEPHRINE 100 MG in DEXT 5% WATER 240 ML IV PRN (08:55)
[2020-09-18] MEDS ORDERED: MIDAZOLAM 100MG/100ML PMX 100 ML IV PRN (10:30)
[2020-09-18] MEDS: POTASSIUM CHLORIDE IV SCH ×2 (13:05→21:53)
[2020-09-18] MEDS: [UNRECOGNIZED DRUG - OTHER] IV SCH ×2 (13:05→21:53)
[2020-09-18 15:14] LABS: HEMATOCRIT 32.9 % (36.0-48.0); HEMOGLOBIN 10.5 g/dL (12.0-16.0)
[2020-09-19] VITALS (81 sets, daily range): BP systolic 92–126; BP diastolic 43–72
[2020-09-19] MEDS: IPRATROPIUM/ALBUTEROL 0.5-3(2.5)MG/3ML NEB HHN SCH ×6 (00:04→20:57)
[2020-09-19] MEDS: MEROPENEM 1000MG in NORMAL SALINE 100ML IV SCH ×2 (01:30→12:36)
[2020-09-19 06:36] LABS: HEMATOCRIT. 31.6 % (36.0-48.0); MEAN CORPUSCULAR HEMOGLOBIN 29.3 pg (28.0-32.0); MEAN CORPUSCULAR VOLUME 92.4 fL (81.0-99.0); PLATELET 153 x1000/uL (130-400); RED BLOOD CELL COUNT 3.42 mill/uL (4.2-5.4); RED CELL DISTRIBUTION WIDTH 21.8 % (11.6-14.6)
[2020-09-19] MEDS: SODIUM BICARBONATE IV SCH (06:53)
[2020-09-19] MEDS: [UNRECOGNIZED DRUG - OTHER] IV SCH (06:53)
[2020-09-19] MEDS: POTASSIUM CHLORIDE IV SCH (06:53)
[2020-09-19 06:57] LABS: FERRITIN 1247 ng/mL (10-291)
[2020-09-19 07:00] LABS: FOLIC ACID (FOLATE) SERUM >20 ng/mL ng/mL (>5.38)
[2020-09-19 07:12] LABS: VITAMIN B12 SERUM > 2000.0 pg/mL (211-911)
[2020-09-19] MEDS: BLOOD SUGAR DIAGNOSTIC STRIP TEST SCH ×4 (07:50→21:00)
[2020-09-19] MEDS ORDERED: SODIUM POLYSTYRENE SULFONATE 15 G/60 ML BOT PO ONE (08:00)
[2020-09-19 08:11] LABS: BG BASE EXCESS -3.2 mmol/L (-2.0-2.0); BG CARBOXYHEMOGLOBIN 0.3 % (0.5-1.5); BG DEOXYHEMOGLOBIN 1.4 % (0.0-5.0); BG FRACTION INSPIRED OXYGEN 65; BG HCO3 ACT 20.8 mmol/L (22.0-26.0); BG METHEMOGLOBIN 0.4 % (0.0-1.5); BG OXYGEN SATURATION 98.6 % (92.0-98.5); BG OXYHEMOGLOBIN 97.9 % (94.0-97.0); BG PCO2 32.9 mmHg (35.0-45.0); BG PH 7.418 (7.350-7.450); BG PO2 138.3 mmHg (75.0-100.0); BG SAMPLE SITE RIGHT RADIAL; BG TOTAL HEMOGLOBIN 9.4 g/dL (12.0-18.0); BG VENT MODE VENT - AC/VC
[2020-09-19] MEDS: PANTOPRAZOLE SODIUM 40 MG/VIAL IV SCH ×2 (08:31→17:49)
[2020-09-19] MEDS: FLUCONAZOLE 100MG TABLET PO SCH (08:31)
[2020-09-19] MEDS: LACTOBACILLUS GG CAPSULE GT SCH (08:31)
[2020-09-19] MEDS: CITRIC ACID/SODIUM CITRATE SOLN 30ML UDC PO SCH ×3 (08:32→17:50)
[2020-09-19] MEDS: INSULIN LISPRO 100 UNITS/ML SUBCUT SCH ×4 (08:33→21:00)
[2020-09-19] MEDS: DEXT 5%/0.45% NACL 1000ML 1,000 ML IV SCH (10:14)
[2020-09-19 10:15] LABS: NUCLEATED RED BLOOD CELLS 1 /100 WBC; PLATELET ESTIMATE NORMAL
[2020-09-19] MEDS: METOCLOPRAMIDE HCL 10MG/2ML VIAL IV SCH ×2 (12:35→17:50)
[2020-09-20] VITALS (73 sets, daily range): BP systolic 106–143; BP diastolic 55–92
[2020-09-20] MEDS: METOCLOPRAMIDE HCL 10MG/2ML VIAL IV SCH ×4 (00:37→17:15)
[2020-09-20] MEDS: MEROPENEM 1000MG in NORMAL SALINE 100ML IV SCH ×2 (00:37→13:43)
[2020-09-20] MEDS: IPRATROPIUM/ALBUTEROL 0.5-3(2.5)MG/3ML NEB HHN SCH ×5 (00:40→20:52)
[2020-09-20] MEDS: DEXT 5%/0.45% NACL 1000ML 1,000 ML IV SCH (06:48)
[2020-09-20] MEDS: INSULIN LISPRO 100 UNITS/ML SUBCUT SCH ×4 (06:49→20:53)
[2020-09-20] MEDS: BLOOD SUGAR DIAGNOSTIC STRIP TEST SCH ×4 (06:49→20:53)
[2020-09-20 06:55] LABS: HEMATOCRIT. 30.2 % (36.0-48.0); HEMOGLOBIN. 9.7 g/dL (12.0-16.0); MEAN CORPUSCULAR HEMOGLOBIN 29.4 pg (28.0-32.0); MEAN CORPUSCULAR VOLUME 91.3 fL (81.0-99.0); MEAN PLATELET VOLUME 9.8 fl (7.4-10.4); PLATELET 127 x1000/uL (130-400); RED CELL DISTRIBUTION WIDTH 21.4 % (11.6-14.6)
[2020-09-20] MEDS: DEXTROSE 5% WATER 1,000 ML IV SCH (08:36)
[2020-09-20] MEDS: LACTOBACILLUS GG CAPSULE GT SCH (08:37)
[2020-09-20] MEDS: FLUCONAZOLE 100MG TABLET PO SCH (08:37)
[2020-09-20] MEDS: PANTOPRAZOLE SODIUM 40 MG/VIAL IV SCH ×2 (08:37→17:12)
[2020-09-20] MEDS: CITRIC ACID/SODIUM CITRATE SOLN 30ML UDC PO SCH ×3 (08:42→17:15)
[2020-09-20 09:42] LABS: BG BASE EXCESS -1.5 mmol/L (-2.0-2.0); BG CARBOXYHEMOGLOBIN 0.3 % (0.5-1.5); BG DEOXYHEMOGLOBIN 2.8 % (0.0-5.0); BG FRACTION INSPIRED OXYGEN 55; BG METHEMOGLOBIN 0.4 % (0.0-1.5); BG OXYGEN SATURATION 97.2 % (92.0-98.5); BG OXYHEMOGLOBIN 96.5 % (94.0-97.0); BG PCO2 37.8 mmHg (35.0-45.0); BG PH 7.402 (7.350-7.450); BG PO2 100.6 mmHg (75.0-100.0); BG SAMPLE SITE RIGHT RADIAL; BG TOTAL HEMOGLOBIN 10.3 g/dL (12.0-18.0); BG TOTAL RESPIRATORY RATE 26 b/min; BG VENT MODE VENT - AC
[2020-09-20 10:32] LABS: NUCLEATED RED BLOOD CELLS 1 /100 WBC
[2020-09-20 10:35] LABS: PLATELET ESTIMATE SLIGHTLY DECREASED
[2020-09-20] MEDS ORDERED: VANCOMYCIN 750 MG PREMIX 150 ML IV NR (12:00)
[2020-09-21] VITALS (63 sets, daily range): BP systolic 110–151; BP diastolic 53–101
[2020-09-21] MEDS: IPRATROPIUM/ALBUTEROL 0.5-3(2.5)MG/3ML NEB HHN SCH ×7 (00:45→20:25)
[2020-09-21] MEDS: MEROPENEM 1000MG in NORMAL SALINE 100ML IV SCH ×2 (01:14→13:35)
[2020-09-21] MEDS: DEXTROSE 5% WATER 1,000 ML IV SCH (04:01)
[2020-09-21] MEDS: METOCLOPRAMIDE HCL 10MG/2ML VIAL IV SCH ×4 (05:37→16:41)
[2020-09-21 06:36] LABS: MEAN CORPUSCULAR HEMOGLOBIN 29.6 pg (28.0-32.0); MEAN CORPUSCULAR VOLUME 91.6 fL (81.0-99.0); MEAN PLATELET VOLUME 9.7 fl (7.4-10.4); PLATELET 95 x1000/uL (130-400); RED BLOOD CELL COUNT 3.38 mill/uL (4.2-5.4); RED CELL DISTRIBUTION WIDTH 20.8 % (11.6-14.6)
[2020-09-21 07:59] LABS: BG BASE EXCESS -1.4 mmol/L (-2.0-2.0); BG CARBOXYHEMOGLOBIN 0.3 % (0.5-1.5); BG DEOXYHEMOGLOBIN 2.3 % (0.0-5.0); BG FRACTION INSPIRED OXYGEN 50; BG HCO3 ACT 22.7 mmol/L (22.0-26.0); BG METHEMOGLOBIN 0.1 % (0.0-1.5); BG OXYGEN SATURATION 97.7 % (92.0-98.5); BG OXYHEMOGLOBIN 97.3 % (94.0-97.0); BG PCO2 35.6 mmHg (35.0-45.0); BG PH 7.422 (7.350-7.450); BG PO2 107.4 mmHg (75.0-100.0); BG SAMPLE SITE RIGHT RADIAL; BG TOTAL HEMOGLOBIN 10.7 g/dL (12.0-18.0); BG VENT MODE VENT - AC/VC
[2020-09-21] MEDS: BLOOD SUGAR DIAGNOSTIC STRIP TEST SCH ×4 (08:03→20:49)
[2020-09-21] MEDS: INSULIN LISPRO 100 UNITS/ML SUBCUT SCH ×4 (08:04→20:49)
[2020-09-21 08:18] LABS: PLATELET ESTIMATE SLIGHTLY DECREASED
[2020-09-21] MEDS: CITRIC ACID/SODIUM CITRATE SOLN 30ML UDC PO SCH ×3 (08:48→16:41)
[2020-09-21] MEDS: LACTOBACILLUS GG CAPSULE GT SCH (08:48)
[2020-09-21] MEDS: PANTOPRAZOLE SODIUM 40 MG/VIAL IV SCH ×2 (08:48→16:39)
[2020-09-21] MEDS: FLUCONAZOLE 100MG TABLET PO SCH (08:48)
[2020-09-21] MEDS: SODIUM CHLORIDE 0.45% 1,000 ML IV SCH (11:06)
[2020-09-21] MEDS ORDERED: MIDAZOLAM 100MG/100ML PMX 100 ML IV PRN (15:30)
[2020-09-21] MEDS: MICAFUNGIN 100 MG in SODIUM CHLORIDE 0.9% 100 ML IV SCH (16:39)
[2020-09-21] MEDS: SILVER SULFADIAZINE 1% CREAM 25GM TOP SCH (21:12)
[2020-09-22] VITALS (50 sets, daily range): BP systolic 118–171; BP diastolic 46–92
[2020-09-22] MEDS: IPRATROPIUM/ALBUTEROL 0.5-3(2.5)MG/3ML NEB HHN SCH ×6 (00:45→21:33)
[2020-09-22] MEDS: MEROPENEM 1000MG in NORMAL SALINE 100ML IV SCH ×2 (01:49→13:04)
[2020-09-22] MEDS: METOCLOPRAMIDE HCL 10MG/2ML VIAL IV SCH ×4 (01:51→18:00)
[2020-09-22] MEDS: SODIUM CHLORIDE 0.45% 1,000 ML IV SCH (04:58)
[2020-09-22 06:49] LABS: HEMATOCRIT. 31.1 % (36.0-48.0); HEMOGLOBIN. 10.1 g/dL (12.0-16.0); MEAN CORPUSCULAR HEMOGLOBIN 29.6 pg (28.0-32.0); MEAN CORPUSCULAR VOLUME 90.9 fL (81.0-99.0); MEAN PLATELET VOLUME 10.4 fl (7.4-10.4); PLATELET 86 x1000/uL (130-400); RED BLOOD CELL COUNT 3.42 mill/uL (4.2-5.4); RED CELL DISTRIBUTION WIDTH 20.7 % (11.6-14.6)
[2020-09-22] MEDS: BLOOD SUGAR DIAGNOSTIC STRIP TEST SCH ×4 (07:50→21:00)
[2020-09-22] MEDS: INSULIN LISPRO 100 UNITS/ML SUBCUT SCH ×4 (08:20→21:00)
[2020-09-22] MEDS: LACTOBACILLUS GG CAPSULE GT SCH (08:22)
[2020-09-22] MEDS: PANTOPRAZOLE SODIUM 40 MG/VIAL IV SCH ×2 (08:22→17:54)
[2020-09-22] MEDS: CITRIC ACID/SODIUM CITRATE SOLN 30ML UDC PO SCH ×3 (08:53→17:55)
[2020-09-22 10:32] LABS: BG CARBOXYHEMOGLOBIN 0.3 % (0.5-1.5); BG FRACTION INSPIRED OXYGEN 40; BG HCO3 ACT 23.7 mmol/L (22.0-26.0); BG METHEMOGLOBIN 0.1 % (0.0-1.5); BG OXYHEMOGLOBIN 96.6 % (94.0-97.0); BG PCO2 39.1 mmHg (35.0-45.0); BG PO2 97.6 mmHg (75.0-100.0); BG SAMPLE SITE RIGHT RADIAL; BG TOTAL HEMOGLOBIN 10.5 g/dL (12.0-18.0); BG TOTAL RESPIRATORY RATE 26 b/min; BG VENT MODE VENT - AC
[2020-09-22] MEDS: FUROSEMIDE 40MG/4ML VIAL IVP SCH ×2 (10:53→17:54)
[2020-09-22 16:00] LABS: PLATELET ESTIMATE DECREASED
[2020-09-22] MEDS: MICAFUNGIN 100 MG in SODIUM CHLORIDE 0.9% 100 ML IV SCH (16:19)
[2020-09-23] VITALS (42 sets, daily range): BP systolic 106–195; BP diastolic 55–104
[2020-09-23] MEDS: IPRATROPIUM/ALBUTEROL 0.5-3(2.5)MG/3ML NEB HHN SCH ×6 (00:48→20:42)
[2020-09-23] MEDS: METOCLOPRAMIDE HCL 10MG/2ML VIAL IV SCH ×4 (01:02→16:41)
[2020-09-23] MEDS: SILVER SULFADIAZINE 1% CREAM 25GM TOP SCH ×2 (01:03→22:04)
[2020-09-23] MEDS: MEROPENEM 1000MG in NORMAL SALINE 100ML IV SCH ×2 (02:10→12:38)
[2020-09-23 06:30] LABS: HEMATOCRIT. 31.6 % (36.0-48.0); HEMOGLOBIN. 10.3 g/dL (12.0-16.0); MEAN CORPUSCULAR HEMOGLOBIN 29.4 pg (28.0-32.0); MEAN CORPUSCULAR VOLUME 90.3 fL (81.0-99.0); MEAN PLATELET VOLUME 10.6 fl (7.4-10.4); PLATELET 79 x1000/uL (130-400)
[2020-09-23] MEDS: LACTOBACILLUS GG CAPSULE GT SCH (08:16)
[2020-09-23] MEDS: FUROSEMIDE 40MG/4ML VIAL IVP SCH ×2 (08:16→16:41)
[2020-09-23] MEDS: PANTOPRAZOLE SODIUM 40 MG/VIAL IV SCH ×2 (08:17→16:41)
[2020-09-23] MEDS: BLOOD SUGAR DIAGNOSTIC STRIP TEST SCH ×4 (08:17→21:00)
[2020-09-23] MEDS: CITRIC ACID/SODIUM CITRATE SOLN 30ML UDC PO SCH (08:17)
[2020-09-23] MEDS: INSULIN LISPRO 100 UNITS/ML SUBCUT SCH ×4 (08:17→21:00)
[2020-09-23 09:43] LABS: BG BASE EXCESS 1.4 mmol/L (-2.0-2.0); BG CARBOXYHEMOGLOBIN 0.3 % (0.5-1.5); BG DEOXYHEMOGLOBIN 3.6 % (0.0-5.0); BG FRACTION INSPIRED OXYGEN 40; BG METHEMOGLOBIN 0.3 % (0.0-1.5); BG OXYGEN SATURATION 96.4 % (92.0-98.5); BG OXYHEMOGLOBIN 95.8 % (94.0-97.0); BG PO2 89.7 mmHg (75.0-100.0); BG SAMPLE SITE RIGHT RADIAL; BG TOTAL HEMOGLOBIN 10.9 g/dL (12.0-18.0); BG VENT MODE VENT - AC
[2020-09-23 12:29] LABS: PLATELET ESTIMATE DECREASED
[2020-09-23] MEDS: CITRIC ACID/SODIUM CITRATE SOLN 30ML UDC PEG SCH (16:41)
[2020-09-23] MEDS: MICAFUNGIN 100 MG in SODIUM CHLORIDE 0.9% 100 ML IV SCH (17:24)
[2020-09-24] VITALS (28 sets, daily range): BP systolic 106–159; BP diastolic 55–80
[2020-09-24] MEDS: METOCLOPRAMIDE HCL 10MG/2ML VIAL IV SCH ×4 (00:33→18:23)
[2020-09-24] MEDS: MEROPENEM 1000MG in NORMAL SALINE 100ML IV SCH ×2 (00:34→13:04)
[2020-09-24] MEDS: IPRATROPIUM/ALBUTEROL 0.5-3(2.5)MG/3ML NEB HHN SCH ×5 (03:19→20:31)
[2020-09-24] MEDS ORDERED: FENTANYL CITRATE/PF 2,500 MCG in SODIUM CHLORIDE 0.9% 200 ML IV PRN (06:00)
[2020-09-24 06:23] LABS: PHOSPHORUS 5.5 mg/dL (2.5-4.9)
[2020-09-24] MEDS: BLOOD SUGAR DIAGNOSTIC STRIP TEST SCH ×4 (08:18→21:57)
[2020-09-24] MEDS: INSULIN LISPRO 100 UNITS/ML SUBCUT SCH ×4 (08:20→21:00)
[2020-09-24 08:25] LABS: HEMATOCRIT. 29.5 % (36.0-48.0); HEMOGLOBIN. 9.5 g/dL (12.0-16.0); MEAN CORPUSCULAR HEMOGLOBIN 29.4 pg (28.0-32.0); MEAN CORPUSCULAR VOLUME 91.1 fL (81.0-99.0); MEAN PLATELET VOLUME 10.2 fl (7.4-10.4); PLATELET 90 x1000/uL (130-400); RED BLOOD CELL COUNT 3.24 mill/uL (4.2-5.4); RED CELL DISTRIBUTION WIDTH 20.5 % (11.6-14.6)
[2020-09-24] MEDS: FUROSEMIDE 40MG/4ML VIAL IVP SCH ×2 (09:17→17:01)
[2020-09-24] MEDS: PANTOPRAZOLE SODIUM 40 MG/VIAL IV SCH ×2 (09:17→17:01)
[2020-09-24] MEDS: LACTOBACILLUS GG CAPSULE GT SCH (09:17)
[2020-09-24] MEDS: CITRIC ACID/SODIUM CITRATE SOLN 30ML UDC PEG SCH ×2 (09:18→17:01)
[2020-09-24 10:38] LABS: PLATELET ESTIMATE SLIGHTLY DECREASED
[2020-09-24 10:43] LABS: BG CARBOXYHEMOGLOBIN 0.3 % (0.5-1.5); BG DEOXYHEMOGLOBIN 3.7 % (0.0-5.0); BG FRACTION INSPIRED OXYGEN 40; BG HCO3 ACT 29.1 mmol/L (22.0-26.0); BG METHEMOGLOBIN 0.2 % (0.0-1.5); BG OXYGEN SATURATION 96.3 % (92.0-98.5); BG OXYHEMOGLOBIN 95.8 % (94.0-97.0); BG PCO2 46.5 mmHg (35.0-45.0); BG PH 7.415 (7.350-7.450); BG PO2 93.8 mmHg (75.0-100.0); BG SAMPLE SITE RIGHT RADIAL; BG TOTAL HEMOGLOBIN 10.1 g/dL (12.0-18.0); BG VENT MODE VENT - SIMV
[2020-09-24] MEDS: DILTIAZEM HCL 30MG TABLET GT SCH ×2 (10:59→18:23)
[2020-09-24] MEDS: MICAFUNGIN 100 MG in SODIUM CHLORIDE 0.9% 100 ML IV SCH (16:29)
[2020-09-24] MEDS: SILVER SULFADIAZINE 1% CREAM 25GM TOP SCH (21:57)
[2020-09-25] VITALS (42 sets, daily range): BP systolic 103–159; BP diastolic 52–75
[2020-09-25] MEDS: IPRATROPIUM/ALBUTEROL 0.5-3(2.5)MG/3ML NEB HHN SCH ×6 (00:37→20:10)
[2020-09-25] MEDS: DILTIAZEM HCL 30MG TABLET GT SCH ×3 (02:09→18:28)
[2020-09-25] MEDS: METOCLOPRAMIDE HCL 10MG/2ML VIAL IV SCH ×5 (02:09→23:11)
[2020-09-25 06:50] LABS: CHLORIDE 107 mEq/L (98-107)
[2020-09-25 06:52] LABS: BASOPHILS % 0.3 % (0.0-2.0); EOSINOPHILS % 0.9 % (0.0-5.0); HEMATOCRIT. 28.6 % (36.0-48.0); HEMOGLOBIN. 9.3 g/dL (12.0-16.0); LYMPHOCYTES % 8.9 % (20.0-50.0); MEAN CORPUSCULAR HEMOGLOBIN 29.6 pg (28.0-32.0); MEAN CORPUSCULAR VOLUME 91.2 fL (81.0-99.0); MEAN PLATELET VOLUME 11.1 fl (7.4-10.4); MONOCYTES % 3.9 % (2.0-8.0); PLATELET 109 x1000/uL (130-400); RED BLOOD CELL COUNT 3.14 mill/uL (4.2-5.4); RED CELL DISTRIBUTION WIDTH 20.9 % (11.6-14.6)
[2020-09-25] MEDS: BLOOD SUGAR DIAGNOSTIC STRIP TEST SCH ×4 (07:50→20:14)
[2020-09-25] MEDS: INSULIN LISPRO 100 UNITS/ML SUBCUT SCH ×4 (08:20→20:14)
[2020-09-25 08:55] LABS: BG CARBOXYHEMOGLOBIN 0.3 % (0.5-1.5); BG DEOXYHEMOGLOBIN 7.1 % (0.0-5.0); BG FRACTION INSPIRED OXYGEN 40; BG HCO3 ACT 31.1 mmol/L (22.0-26.0); BG METHEMOGLOBIN 0.3 % (0.0-1.5); BG OXYGEN SATURATION 92.9 % (92.0-98.5); BG OXYHEMOGLOBIN 92.3 % (94.0-97.0); BG PH 7.429 (7.350-7.450); BG PO2 65.3 mmHg (75.0-100.0); BG SAMPLE SITE RIGHT RADIAL; BG TOTAL HEMOGLOBIN 9.7 g/dL (12.0-18.0); BG TOTAL RESPIRATORY RATE 22 b/min; BG VENT MODE VENT - AC
[2020-09-25] MEDS ORDERED: LACTULOSE 20G/30ML UDC PO NR (09:00)
[2020-09-25] MEDS: PANTOPRAZOLE SODIUM 40 MG/VIAL IV SCH ×2 (09:09→16:59)
[2020-09-25] MEDS: LACTOBACILLUS GG CAPSULE GT SCH (09:09)
[2020-09-25] MEDS: CITRIC ACID/SODIUM CITRATE SOLN 30ML UDC PEG SCH ×2 (09:09→16:59)
[2020-09-25] MEDS: FUROSEMIDE 40MG/4ML VIAL IVP SCH ×2 (09:09→16:59)
[2020-09-25] MEDS: MICAFUNGIN 100 MG in SODIUM CHLORIDE 0.9% 100 ML IV SCH (16:58)
[2020-09-25] MEDS: SILVER SULFADIAZINE 1% CREAM 25GM TOP SCH (21:07)
[2020-09-26] VITALS (66 sets, daily range): BP systolic 102–158; BP diastolic 48–104
[2020-09-26] MEDS: IPRATROPIUM/ALBUTEROL 0.5-3(2.5)MG/3ML NEB HHN SCH ×4 (01:57→21:36)
[2020-09-26] MEDS: DILTIAZEM HCL 30MG TABLET GT SCH ×3 (02:00→18:18)
[2020-09-26] MEDS: METOCLOPRAMIDE HCL 10MG/2ML VIAL IV SCH ×3 (05:09→18:18)
[2020-09-26] MEDS ORDERED: MORPHINE SULFATE 2 MG/ML CPJ (NOT FOR IM USE) IV PRN ×2 (06:00→06:45)
[2020-09-26] MEDS: BLOOD SUGAR DIAGNOSTIC STRIP TEST SCH ×4 (07:50→20:37)
[2020-09-26] MEDS: INSULIN LISPRO 100 UNITS/ML SUBCUT SCH ×4 (08:20→20:38)
[2020-09-26] MEDS ORDERED: FUROSEMIDE 40MG/4ML VIAL IVP SCH (08:30)
[2020-09-26] MEDS ORDERED: POTASSIUM CHLORIDE 20MEQ/PACKET GT SCH (08:30)
[2020-09-26] MEDS: FUROSEMIDE 40MG/4ML VIAL IVP SCH (09:00)
[2020-09-26] MEDS: PANTOPRAZOLE SODIUM 40 MG/VIAL IV SCH ×2 (09:23→16:30)
[2020-09-26] MEDS: ACETAMINOPHEN 650MG/20.3ML UDC GT PRN (09:23)
[2020-09-26] MEDS: CITRIC ACID/SODIUM CITRATE SOLN 30ML UDC PEG SCH ×2 (09:23→16:31)
[2020-09-26] MEDS: LACTOBACILLUS GG CAPSULE GT SCH (09:23)
[2020-09-26 09:28] LABS: HEMATOCRIT. 28.2 % (36.0-48.0); HEMOGLOBIN. 9.1 g/dL (12.0-16.0); MEAN CORPUSCULAR VOLUME 89.8 fL (81.0-99.0); MEAN PLATELET VOLUME 10.5 fl (7.4-10.4); PLATELET 139 x1000/uL (130-400); RED BLOOD CELL COUNT 3.14 mill/uL (4.2-5.4); RED CELL DISTRIBUTION WIDTH 20.2 % (11.6-14.6)
[2020-09-26 09:33] LABS: CHLORIDE 109 mEq/L (98-107)
[2020-09-26] MEDS ORDERED: MAGNESIUM HYDROXIDE 400MG/5ML 30ML UDC PO PRN (12:15)
[2020-09-26 13:01] LABS: BG BASE EXCESS 7.8 mmol/L (-2.0-2.0); BG CARBOXYHEMOGLOBIN 0.1 % (0.5-1.5); BG DEOXYHEMOGLOBIN 7.3 % (0.0-5.0); BG FRACTION INSPIRED OXYGEN 40; BG HCO3 ACT 32.8 mmol/L (22.0-26.0); BG METHEMOGLOBIN 0.3 % (0.0-1.5); BG OXYGEN SATURATION 92.7 % (92.0-98.5); BG OXYHEMOGLOBIN 92.3 % (94.0-97.0); BG PCO2 48.7 mmHg (35.0-45.0); BG PH 7.446 (7.350-7.450); BG PO2 68.7 mmHg (75.0-100.0); BG SAMPLE SITE RIGHT RADIAL; BG TOTAL HEMOGLOBIN 9.5 g/dL (12.0-18.0); BG VENT MODE VENT - CPAP
[2020-09-26 14:18] LABS: PLATELET ESTIMATE NORMAL
[2020-09-26] MEDS: CEFEPIME 1,000 MG in DEXTROSE 5% WATER 50 ML IV SCH (16:30)
[2020-09-26] MEDS: MICAFUNGIN 100 MG in SODIUM CHLORIDE 0.9% 100 ML IV SCH (16:30)
[2020-09-26] MEDS: METRONIDAZOLE 500MG TABLET PO SCH (20:37)
[2020-09-26] MEDS: SILVER SULFADIAZINE 1% CREAM 25GM TOP SCH (20:37)
[2020-09-27] VITALS (59 sets, daily range): BP systolic 80–167; BP diastolic 38–86
[2020-09-27] MEDS: IPRATROPIUM/ALBUTEROL 0.5-3(2.5)MG/3ML NEB HHN SCH ×2 (01:10→20:57)
[2020-09-27] MEDS: DILTIAZEM HCL 30MG TABLET GT SCH ×2 (01:33→10:35)
[2020-09-27] MEDS: METOCLOPRAMIDE HCL 10MG/2ML VIAL IV SCH ×3 (01:34→12:13)
[2020-09-27] MEDS: METRONIDAZOLE 500MG TABLET PO SCH (05:53)
[2020-09-27] MEDS: CEFEPIME 1,000 MG in DEXTROSE 5% WATER 50 ML IV SCH (05:54)
[2020-09-27 06:37] LABS: HEMOGLOBIN. 8.7 g/dL (12.0-16.0); MEAN CORPUSCULAR HEMOGLOBIN 29.3 pg (28.0-32.0); MEAN CORPUSCULAR VOLUME 90.7 fL (81.0-99.0); MEAN PLATELET VOLUME 10.7 fl (7.4-10.4); PLATELET 151 x1000/uL (130-400); RED BLOOD CELL COUNT 2.98 mill/uL (4.2-5.4); RED CELL DISTRIBUTION WIDTH 20.4 % (11.6-14.6)
[2020-09-27] MEDS: INSULIN LISPRO 100 UNITS/ML SUBCUT SCH ×2 (08:20→12:39)
[2020-09-27] MEDS ORDERED: MORPHINE SULFATE 2 MG/ML CPJ (NOT FOR IM USE) IV NR (08:30)
[2020-09-27] MEDS ORDERED: POTASSIUM CHLORIDE 20MEQ/PACKET GT NR (08:30)
[2020-09-27] MEDS ORDERED: FUROSEMIDE 40MG/4ML VIAL IVP NR (08:30)
[2020-09-27] MEDS ORDERED: POTASSIUM CHLORIDE 10MEQ TABLET SR PO ONE (08:30)
[2020-09-27] MEDS: BLOOD SUGAR DIAGNOSTIC STRIP TEST SCH ×2 (08:35→12:10)
[2020-09-27 08:38] LABS: PLATELET ESTIMATE NORMAL
[2020-09-27] MEDS: PANTOPRAZOLE SODIUM 40 MG/VIAL IV SCH (08:54)
[2020-09-27] MEDS: CITRIC ACID/SODIUM CITRATE SOLN 30ML UDC PEG SCH (08:54)
[2020-09-27] MEDS: LACTOBACILLUS GG CAPSULE GT SCH (08:55)
[2020-09-27] MEDS ORDERED: RACEPINEPHRINE 2.25% 0.5ML NEB VIAL HHN PRN (12:30)
[2020-09-27] MEDS: MORPHINE SULFATE 250 MG in DEXT 5% WATER 240 ML IV PRN (13:35)
[2020-09-28] VITALS (33 sets, daily range): BP systolic 72–133; BP diastolic 30–74
[2020-09-28] MEDS: IPRATROPIUM/ALBUTEROL 0.5-3(2.5)MG/3ML NEB HHN SCH ×4 (02:11→20:15)
[2020-09-28] MEDS: MORPHINE SULFATE 250 MG in DEXT 5% WATER 240 ML IV PRN (13:54)
[2020-09-28] MEDS: IPRATROPIUM BROMIDE (0.02%) 0.5MG/2.5ML NEB HHN SCH (20:00)
[2020-09-29] VITALS: BP 109/46
[2020-09-29] MEDS: IPRATROPIUM/ALBUTEROL 0.5-3(2.5)MG/3ML NEB HHN SCH ×2 (01:11→08:19)
[2020-09-29] MEDS: IPRATROPIUM BROMIDE (0.02%) 0.5MG/2.5ML NEB HHN SCH ×3 (01:12→08:00)
[2020-09-29 04:00] VITALS: BP_SYST 102; BP_SYST 110; BP_DIAS 39; BP_DIAS 45
[2020-09-29 05:00] VITALS: BP 102/39
[2020-09-29 08:00] VITALS: BP 94/37
== END 2020-09-29 10:54 | disposition expired | DRG 870 ==
LOC: ER 20:52 → MICUSO 23:16 → CVICU 09-17 10:14 → 6EST 09-28 14:50
PROVIDERS: ADMIT Internal Medicine Nephrology; ATTEND Internal Medicine Nephrology
PROC: 0BH17EZ Insertion of Endotracheal Airway into Trachea, Via Natural or Artificial Opening (ICD-10-PCS; principal; 2020-09-15)
PROC: 5A1955Z Respiratory Ventilation, Greater than 96 Consecutive Hours (ICD-10-PCS; 2020-09-15)
PROC: 5A2204Z Restoration of Cardiac Rhythm, Single (ICD-10-PCS; 2020-09-15)
PROC: 30233J1 Transfusion of Nonautologous Serum Albumin into Peripheral Vein, Percutaneous Approach (ICD-10-PCS; 2020-09-18)
PROC: 05HY33Z Insertion of Infusion Device into Upper Vein, Percutaneous Approach (ICD-10-PCS; 2020-09-21)
PROC: B54MZZA Ultrasonography of Right Upper Extremity Veins, Guidance (ICD-10-PCS; 2020-09-21)
DX: A41.9 Sepsis, unspecified organism (principal); R65.21 Severe sepsis with septic shock; J69.0 Pneumonitis due to inhalation of food and vomit; N17.0 Acute kidney failure with tubular necrosis; E43 Unspecified severe protein-calorie malnutrition; J96.01 Acute respiratory failure with hypoxia; B37.1 Pulmonary candidiasis; G92 Toxic encephalopathy; E87.0 Hyperosmolality and hypernatremia; N39.0 Urinary tract infection, site not specified; K56.7 Ileus, unspecified; I47.1 Supraventricular tachycardia; E87.6 Hypokalemia; D64.9 Anemia, unspecified; E11.65 Type 2 diabetes mellitus with hyperglycemia; E11.51 Type 2 diabetes mellitus with diabetic peripheral angiopathy without gangrene; R74.01 Elevation of levels of liver transaminase levels; D69.6 Thrombocytopenia, unspecified; E86.0 Dehydration; E87.5 Hyperkalemia; F03.90 Unspecified dementia, unspecified severity, without behavioral disturbance, psychotic disturbance, mood disturbance, and anxiety; I10 Essential (primary) hypertension; I27.81 Cor pulmonale (chronic); I46.9 Cardiac arrest, cause unspecified; I48.0 Paroxysmal atrial fibrillation; K76.89 Other specified diseases of liver; K80.20 Calculus of gallbladder without cholecystitis without obstruction; R13.10 Dysphagia, unspecified; Z20.822 Contact with and (suspected) exposure to COVID-19; Z51.5 Encounter for palliative care; Z66 Do not resuscitate; Z79.02 Long term (current) use of antithrombotics/antiplatelets; Z79.899 Other long term (current) drug therapy; Z86.16 Personal history of COVID-19; Z86.73 Personal history of transient ischemic attack (TIA), and cerebral infarction without residual deficits; Z93.1 Gastrostomy status; Z88.8 Allergy status to other drugs, medicaments and biological substances; Z91.041 Radiographic dye allergy status; Z68.28 Body mass index [BMI] 28.0-28.9, adult; Z79.01 Long term (current) use of anticoagulants
CPT/HCPCS: 31500; 36415; 36600; 71045; 76700; 76937; 80048; 80053; 80076; 80202; 82248; 82270; 82375; 82550; 82607; 82728; 82746; 82805; 82962; 83036; 83540; 83550; 83605; 83735; 83880; 84075; 84100; 84145; 84484; 85014; 85018; 85025; 85044; 86140; 86705; 86709; 86803; 86850; 86900; 86920; 87070; 87106; 87340; 93005; 93306; 93970; 93971; 94002; 94003; 94640; 99291; C1725; C9113; C9803; J0692; J1100; J1815; J1940; J2185; J2248; J2250; J2270; J2274; J2370; J2543; J2704; J2765; J3010; J3370; J3480; J3490; J7030; J7050; J7060; J7070; P9016